=== PATIENT | female | born 2005 | race Caucasian/White ===

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

== ENCOUNTER 2024-01-17 15:05 | Outpatient (REF) | payer MEDICAID, SELFPAY ==
[2024-01-17 16:34] LABS: HCG Quantitative 15 mIU/mL
== END 2024-01-17 15:06 | disposition home or self-care (01) ==
LOC: HO.HHCL 15:05
PROVIDERS: Visit Provider Student in an Organized Health Care Education/Training Program
DX: N92.6 Irregular menstruation, unspecified (principal)
CPT/HCPCS: 36415; 84702

== ENCOUNTER 2024-01-24 08:47 | Outpatient (REF) | payer MEDICAID, SELFPAY ==
[2024-01-24 15:10] LABS: HCG Quantitative 300 mIU/mL
== END 2024-01-24 08:48 | disposition home or self-care (01) ==
LOC: HO.CHCLDS 08:47
PROVIDERS: Visit Provider Student in an Organized Health Care Education/Training Program
DX: N92.6 Irregular menstruation, unspecified (principal)
CPT/HCPCS: 36415; 84702

== ENCOUNTER 2024-05-11 13:02 | Outpatient (REF) | payer MEDICAID, SELFPAY | END 2024-05-11 13:03 | disposition home or self-care (01) | LOC: HO.HHCLNP 13:02 | PROVIDERS: Visit Provider Nurse Practitioner | DX: J02.9 Acute pharyngitis, unspecified (principal) | CPT/HCPCS: 87070 ==

== ENCOUNTER 2024-10-03 10:10 | Inpatient (IN) | payer MEDICAID, SELFPAY ==
[2024-10-03] VITALS (7 sets, daily range): BP systolic 137–158; BP diastolic 70–99; PULSE 66–80; RESP 16–24; TEMP 36.6–37.1; O2SAT 96–99; BMI 45.4
--- NOTE | 2024-10-03 | ECG_ITS ---
Test Reason : CHEST PAIN Blood Pressure : */* mmHG Vent. Rate : 76 BPM Atrial Rate : 76 BPM P-R Int : 122 ms QRS Dur : 66 ms QT Int : 378 ms P-R-T Axes : 3 30 29 degrees QTcB Int : 425 ms Normal sinus rhythm Normal ECG When compared with ECG of 06-Sep-2016 13:57, No significant changes seen Referred By: Martin Phoenix Electronically Signed By: CARI LYONS
--- NOTE | ~2024-10-03 | CT_ITS ---
CLINICAL HISTORY: SOB CT angiography chest with contrast. 3D Postprocessing. Comparison: None Findings: Motion artifact and contrast bolus timing limit interpretation. No large central or proximal segmental pulmonary embolism. No heart strain by CT. Patchy multifocal airspace density present, most pronounced within the right upper lobe. Moderate-sized bilateral effusions noted. No pneumothorax. The visualized upper abdomen is unremarkable. Borderline axillary adenopathy noted. Impression: Multifocal pneumonia suggested most pronounced within the right upper lobe. Evaluation is somewhat limited for pulmonary embolism. No large central PE or heart strain by CT. Moderate bilateral pleural effusions. This document has been electronically signed by: Rigoberto Pritchard MD on 10/03/2024 13:55:52
--- NOTE | ~2024-10-03 | XR_ITS ---
CLINICAL HISTORY: shortness of breath Chest radiograph, 1 view Comparison: CR/AK/SR - XR CHEST 2V - 09/28/21 22:41 EST Findings: The cardiomediastinal silhouette is not enlarged. Bilateral perihilar bronchovascular prominence. No focal consolidation or effusion. No pneumothorax. IMPRESSION: Bilateral perihilar bronchovascular prominence which can be seen with viral/atypical infection or reactive airway disease. No focal consolidation. This document has been electronically signed by: Jeremiah Martin DO on 10/03/2024 12:06:13
--- NOTE | ~2024-10-03 | XR_ITS ---
EXAMINATION: XR CHEST 1 VIEW HISTORY: F U Effusion, infiltrates COMPARISON: Comparison is made with the prior examination dated 10/03/2024. Correlation is also made with the chest CT dated 10/03/2024. FINDINGS: A single AP portable view of the chest performed at 9:56 AM is submitted. The lungs are expanded and clear. The pleural effusions noted on CT are not visualized on this single AP portable view. There is no pneumothorax or pulmonary vascular congestion. The heart is normal in size. The bones are intact. XR/XR chest 1V IMPRESSION: The pleural effusions described on chest CT are not visualized on this single AP view. PA and lateral views are recommended for follow-up of the pleural effusions. Electronically signed by: Cornel Spence MD 10/05/2024 10:19 AM [facility]ARA
[2024-10-03 11:26] LABS: MANUAL DIFF FLAG NO
[2024-10-03 11:30] LABS: Basophils Percent Auto 0.3 % (0-2); Eosinophils Absolute Auto 0.2 X10*3/uL (0.0-0.4); Eosinophils Percent Auto 2.6 % (0-4); Hematocrit 36.3 % (37.0-47.0); Hemoglobin 11.7 g/dl (12.0-16.0); Imm Gran Abs Auto 0.04 X10*3/uL (0.00-0.03); Imm Gran Pct Auto 0.4 % (0.0-0.4); Lymphocytes Absolute Auto 2.2 X10*3/uL (1.2-4.9); Lymphocytes Percent Auto 22.8 % (20-40); Mean Corpuscular HGB Conc 32.2 g/dl (31.0-35.0); Mean Corpuscular Hemoglobin 27.7 pg (27.0-33.0); Mean Corpuscular Volume 85.8 fL (80.0-98.0); Mean Platelet Volume 9.9 fL (9.4-12.3); Monocytes Absolute Auto 0.5 X10*3/uL (0.1-1.2); Monocytes Percent Auto 5.2 % (2-11); Neutrophils Absolute Auto 6.5 x10*3/uL (2.0-8.3); Neutrophils Percent Auto 68.7 % (45-73); Platelet Count 385 X10*3/uL (160-400); Red Blood Count 4.23 X10*6/uL (4.20-5.50); Red Cell Distribution Width 14.6 % (11.0-16.0); White Blood Count 9.4 X10*3/uL (4.8-10.8)
[2024-10-03 11:33] LABS: Influenza A PCR NEGATIVE (Negative); Influenza B PCR NEGATIVE (Negative); Resp Syncy Virus RNA Qual PCR NEGATIVE (Negative); SARS COV2 PCR INHOUSE NEGATIVE (Negative)
[2024-10-03 11:48] LABS: Prothrombin Time 11.4 SEC (10.9-12.4)
[2024-10-03] MEDS: Lidocaine HCl 1 % 20 ML VIAL SUBCUT (11:48)
[2024-10-03] MEDS: Labetalol HCL 200 MG TABLET PO (11:48)
[2024-10-03 11:49] LABS: D Dimer High Sensitivity 1061 NG/ML
[2024-10-03 12:01] LABS: Troponin-I High Sensitivity 5.3 ng/L (<3.5-17.0)
[2024-10-03 12:05] LABS: B Type Natriuretic Peptide 556 pg/mL (<100)
--- NOTE | 2024-10-03 12:05 | ED_ITS ---
HPI - SOB/Dyspnea General Chief Complaint: Dyspnea Stated Complaint: SOB x 2days ; 1 wk Time Seen by Provider: 10/03/24 11:31 Source: patient Mode of arrival: ambulatory History of Present Illness HPI Narrative: THIS IS A 19 YEARS OLD THE ABOUT 1 WEEK PRESENTED TO THE EMERGENCY DEPARTMENT COMPLAINING OF SHORTNESS OF BREATH FOR ABOUT 2 DAYS. MD elicited complaint: shortness of breath Onset (ago): day(s) (2) Context: recent illness Timing: constant Severity: moderate Exacerbating factors: nothing Relieving factors: nothing Associated symptoms: denies other symptoms Related Data Home Medications ?Medication ?Instructions ?Recorded ?Confirmed No Known Home Meds 10/03/24 10/03/24 Allergies Allergy/AdvReac Type Severity Reaction Status Date / Time No Known Allergies Allergy Verified 10/03/24 10:30 Review of Systems 2 Constitutional: Constitutional: Reports no additional constitutional complaints Cardiovascular: Cardiovascular: Reports no additional cardiovascular complaints and Reports dyspnea Respiratory: Respiratory: Reports dyspnea PMFSH Past Medical History PMFSH Narrative: 1 WEEK AGO Medical History Asthma Social History Social History Smoked in Last 30 Days: No Use of substances other than those prescribed or required for medical reasons: No Advance Directives: No Advance Directives Information Provided: No Do you have a plan to hurt others: No Plan Patient : No (post x1 week) Physical Exam 2 Vital Signs: Vital Signs: Last Vital Signs Temp 98.2 F 10/03/24 14:13 Pulse 66 10/03/24 14:13 Resp 20 10/03/24 14:13 BP 158/77 H 10/03/24 16:10 Pulse Ox 97 10/03/24 14:13 O2 Del Method Room Air 10/03/24 14:13 BMI result Body Mass Index 45.4 NO ACUTE DISTRESS MILDLY HYPERTENSIVE 152/93 THAT NO 149/95 Const: General: cooperative Nutritional Appearance: well nourished O rientation/consciousness: patient oriented x3 HEENT: Head: Yes normal to inspection General nose exam: Normal external nose present Face and sinus: Yes normal facial exam Mouth: Normal oral and palatal mucosa present Throat: Yes posterior oropharynx normal Neck: Neck: Yes normal visual inspection Chest: Chest palpation & inspection: normal inspection of the chest Resp: Effort & Inspection: normal respiratory effort Auscultation: clear to auscultation bilaterally Cardio: Jugular venous distension: no JVD Rate: regular rate Rhythm: r egular rhythm GI: Inspection: Yes normal to inspection Palpation (GI): Soft to palpation and not firm Skin: General skin exam: no rashes or lesions noted and elasticity normal L esions: no lesions Rashes: no rashes Neuro: General: patient oriented x3 Course Reevaluation(s) Reevaluation #1: DIFFICULT IV IV WAS ESTABLISHED BY ME UNDER ULTRASOUND A 20 GAUGE CATHETER LEFT ANTECUBITAL AREA, Bed side POC US done no pericardial effusion good EF Reevaluation #2: CTA of the chest was read by the Radiology as multifocal pneumonia, at this point we will do blood culture, lactic acid IV antibiotic. The patient does not require IV fluids blood pressure is actually elevated. I did a bedside echo no pericardial effusion. He has Time: 14:38 Reevaluation #3: [facility] spoke with OB service Dr Montgomery I was asked to call [facility]. I spoke with [facility] OB Dr Bloom , this is not preeclampsia because normal LFT normal Bun and creat .I was referred to the medical service [facility] spoke with [facility] hospitalist [place] [facility] accepting Dr Guardado however no bed available ,will take 2 Days to get bed ,the consensus was that it is reasonable to admit at [facility] treat the pneumonia and do formal Echo in Am.DR Bloom will be available for any questions. Spoke with hospitalist Marie Time: 15:59 Additional Reevaluation(s): 5 PM I am off shift now,I make Dr Ferreira aware of the case she is oxygenating well she is not tachypneic Medications Administered Discontinued Medications Generic Name Dose Route Start Last Admin Trade Name Freq PRN Reason Stop Dose Admin Ceftriaxone Sodium 1 gm 10/03/24 14:20 10/03/24 14:45 Ceftriaxone Sodium 1 Gm Vial IVPUSH 10/03/24 14:21 1 gm ONCE ONE Administration Furosemide 20 mg 10/03/24 15:53 10/03/24 16:10 Furosemide 20 Mg/2 Ml Vial IVPUSH 10/03/24 15:54 20 mg ONCE ONE Administration Protocol Doxycycline Hyclate 100 mg/ 250 mls @ 166.67 mls/hr 10/03/24 14:19 10/03/24 16:23 Sodium Chloride IV 10/03/24 15:48 Infused ONCE ONE Infusion Iohexol 65 ml 10/03/24 13:04 10/03/24 13:13 Iohexol 350 Mg/Ml 100 Ml Infus..Btl IV 10/03/24 13:05 65 ml ONCE ONE Administration Labetalol HCl 200 mg 10/03/24 11:31 10/03/24 11:48 Labetalol Hcl 200 Mg Tablet PO 10/03/24 11:32 200 mg ONCE ONE Administration Protocol Lidocaine HCl 20 ml 10/03/24 11:10 10/03/24 11:48 Lidocaine Hcl 1 % 20 Ml Vial SUBCUT 10/03/24 11:11 20 ml ONCE ONE Administration Medical Decision Making Medical Decision Making MDM Narrative: THIS IS A 19 YEARS OLD THE WITH SHORTNESS OF BREATH AND ELEVATED BLOOD PRESSURE WILL CHECK LABS EKG CHEST X-RAY Differential Diagnosis Differential Diagnoses: The differential diagnosis associated with the presentation includes CARDIOMYOPATHY/PULMONARY EMBOLI/ECLAMPSIA Admission/Observation Consideration of admission/observation: Escalation of care including admission/observation considered Consult Healthcare Provider Management of the patient was discussed with: Hospitalist and Ribbon Winder multiple phone call OB at [facility] Dr Chambers, OB at [facility] Dr Bloom,hospitalist at [facility] Mishel Lab Data MDM Lab Attestation statement: I reviewed the patient's lab results. 10/03/24 11:19 10/03/24 12:10 Labs: Lab Results 10/03/24 10/03/24 10/03/24 Range/Units 10:45 11:19 11:20 WBC 9.4 (4.8-10.8) X10*3/uL RBC 4.23 (4.20-5.50) X10*6/uL Hgb 11.7 L (12.0-16.0) g/dl Hct 36.3 L (37.0-47.0) % MCV 85.8 (80.0-98.0) fL MCH 27.7 (27.0-33.0) pg MCHC 32.2 (31.0-35.0) g/dl RDW 14.6 (11.0-16.0) % Plt Count 385 (160-400) X10*3/uL MPV 9.9 (9.4-12.3) fL Immature Gran % (Auto) 0.4 (0.0-0.4) % Neut % (Auto) 68.7 (45-73) % Lymph % (Auto) 22.8 (20-40) % [place] % (Auto) 5.2 (2-11) % Eos % (Auto) 2.6 (0-4) % Baso % (Auto) 0.3 (0-2) % Lymph # (Auto) 2.2 (1.2-4.9) X10*3/uL [place] # (Auto) 0.5 (0.1-1.2) X10*3/uL Eos # (Auto) 0.2 (0.0-0.4) X10*3/uL Baso # (Auto) 0.0 (0.0-0.2) X10*3/uL Abs Immat Gran (auto) 0.04 H (0.00-0.03) X10*3/uL Absolute Neuts (auto) 6.5 (2.0-8.3) x10*3/uL Absolute Nucleated RBC 0.000 (0.0-0.012) X10*3/uL Nucleated RBC % (auto) 0.0 (0.0-0.2) /100WBC Hold Purple Top SEE NOTE PT 11.4 (10.9-12.4) SEC INR 1.0 (0.9-1.1) D-Dimer High Sensitivty 1061 NG/ML Hold Blue Top SEE NOTE Sodium (135-145) mmol/L Potassium (3.3-5.1) mmol/L Chloride (96-108) mmol/L Carbon Dioxide (22-29) mmol/L Anion Gap (12-20) BUN (9-16) mg/dL Creatinine (0.5-1.4) mg/dL Estim Creat Clear Calc Estimated GFR Random Glucose (60-115) mg/dL Calcium (8.4-10.2) mg/dL Total Bilirubin (0.0-1.0) mg/dL Direct Bilirubin (0.0-0.5) mg/dL AST (5-31) U/L ALT (0-31) U/L Alkaline Phosphatase (39-117) U/L Troponin I High Sens 5.3 (<3.5-17.0) ng/L B-Natriuretic Peptide 556 H (<100) pg/mL Total Protein (6.5-8.0) g/dL Albumin (3.5-5.0) g/dL Influenza Type A (PCR) NEGATIVE (Negative) Influenza Type B (PCR) NEGATIVE (Negative) RSV RNA Qual (PCR) NEGATIVE (Negative) SARS-CoV-2 RNA (RT-PCR) NEGATIVE (Negative) 10/03/24 Range/Units 12:10 WBC (4.8-10.8) X10*3/uL RBC (4.20-5.50) X10*6/uL Hgb (12.0-16.0) g/dl Hct (37.0-47.0) % MCV (80.0-98.0) fL MCH (27.0-33.0) pg MCHC (31.0-35.0) g/dl RDW (11.0-16.0) % Plt Count (160-400) X10*3/uL MPV (9.4-12.3) fL Immature Gran % (Auto) (0.0-0.4) % Neut % (Auto) (45-73) % Lymph % (Auto) (20-40) % [place] % (Auto) (2-11) % Eos % (Auto) (0-4) % Baso % (Auto) (0-2) % Lymph # (Auto) (1.2-4.9) X10*3/uL [place] # (Auto) (0.1-1.2) X10*3/uL Eos # (Auto) (0.0-0.4) X10*3/uL Baso # (Auto) (0.0-0.2) X10*3/uL Abs Immat Gran (auto) (0.00-0.03) X10*3/uL Absolute Neuts (auto) (2.0-8.3) x10*3/uL Absolute Nucleated RBC (0.0-0.012) X10*3/uL Nucleated RBC % (auto) (0.0-0.2) /100WBC Hold Purple Top PT (10.9-12.4) SEC INR (0.9-1.1) D-Dimer High Sensitivty NG/ML Hold Blue Top Sodium 143 (135-145) mmol/L Potassium 4.5 (3.3-5.1) mmol/L Chloride 112 H (96-108) mmol/L Carbon Dioxide 22 (22-29) mmol/L Anion Gap 14 (12-20) BUN 11 (9-16) mg/dL Creatinine 0.79 (0.5-1.4) mg/dL Estim Creat Clear Calc 144.9 Estimated GFR > 60 Random Glucose 96 (60-115) mg/dL Calcium 8.8 D (8.4-10.2) mg/dL Total Bilirubin 0.4 (0.0-1.0) mg/dL Direct Bilirubin 0.2 (0.0-0.5) mg/dL AST 24 (5-31) U/L ALT 26 (0-31) U/L Alkaline Phosphatase 141 H (39-117) U/L Troponin I High Sens (<3.5-17.0) ng/L B-Natriuretic Peptide (<100) pg/mL Total Protein 6.4 L (6.5-8.0) g/dL Albumin 3.3 L (3.5-5.0) g/dL Influenza Type A (PCR) (Negative) Influenza Type B (PCR) (Negative) RSV RNA Qual (PCR) (Negative) SARS-CoV-2 RNA (RT-PCR) (Negative) Independent Interpretation I performed an independent interpretation of an: CT Scan Radiology Impression Discussion of test interpretation with radiology: I have reviewed the radiologist's reading. Radiologist Impression: No large central or proximal segmental pulmonary embolism. No heart strain by CT. Patchy multifocal airspace density present, most pronounced within the right upper lobe. Moderate-sized bilateral effusions noted. No pneumothorax. The visualized upper abdomen is unremarkable. Borderline axillary adenopathy noted. Impression: Multifocal pneumonia suggested most pronounced within the right upper lobe. Evaluation is somewhat limited for pulmonary embolism. No large central PE or heart strain by CT. Moderate bilateral pleural effusions. This document has been electronically signed by: Rigoberto Pritchard MD on 10/03/2024 13:55:52 Procedures EJ/Peripheral Line Arm L: Time Out Performed: Yes Skin Cleansed in Sterile Fashion: Yes Size (gauge): 20 IV Secured and Dressing Applied: Yes Patient Tolerated Procedure: well Additional Comments: Under US guided cannulated left Brachial vein with 20 Stef catheter good flush good blood return Critical Care Time Critical Care Time Critical Care Time: Yes Total Critical Care Time: 60 Attestation: taking care of the pt ,speaking to [facility] Dr Montgomery,speaking to [facility] OBBrandi Bloom,speaking to [facility] hospitalist Discharge Plan Discharge Clinical Impression: LESTER (dyspnea on exertion), Multifocal pneumonia, Bilateral pleural effusion Patient Disposition: Admitted As Inpatient Print Language: Arabic
[2024-10-03 12:38] LABS: Alanine Aminotransferase 26 U/L (0-31); Albumin Level 3.3 g/dL (3.5-5.0); Alkaline Phosphatase 141 U/L (39-117); Anion Gap 14 (12-20); Aspartate Amino Transferase 24 U/L (5-31); Bilirubin Direct 0.2 mg/dL (0.0-0.5); Bilirubin Total 0.4 mg/dL (0.0-1.0); Blood Urea Nitrogen 11 mg/dL (9-16); Calcium 8.8 mg/dL (8.4-10.2); Carbon Dioxide 22 mmol/L (22-29); Chloride 112 mmol/L (96-108); Creatinine Clr Calc Pharmacy 144.9; Estimated Glomerular Filt Rate > 60; Glucose Random 96 mg/dL (60-115); Potassium 4.5 mmol/L (3.3-5.1); Sodium 143 mmol/L (135-145); Total Protein 6.4 g/dL (6.5-8.0)
[2024-10-03] MEDS: iohexoL 350 MG/ML 100 ML INFUS..BTL 65 ML IV (13:13)
[2024-10-03] MEDS: cefTRIAXone sodium 1 GM VIAL IVPUSH (14:45)
[2024-10-03] MEDS: Doxycycline Hyclate 100 MG in 0.9 % Sodium Chloride 250 ML 166.67 MG IV (14:53)
--- NOTE | 2024-10-03 16:04 | P.HPHOSP_ITS ---
History of Present Illness Date of Service: 10/03/24 Chief Complaint: SOB 19-year-old woman 1 week presenting with complaints of shortness of breath over the last 2 days and lethargy. She reports an unremarkable vaginal . She has no other significant medical history and does not take any regularly prescribed medications at home. She denied any fever, chills, nausea, vomiting, diarrhea, recent travel. In the ER, her D-dimer was noted to be elevated at 1061 therefore chest CTA was obtained which was negative for pulmonary embolus, heart strain but did show multifocal pneumonia and moderate bilateral pleural effusions. BNP was elevated at 556, normal troponin, negative for flu, RSV and COVID. In the ER, patient received labetalol for elevated blood pressure, Rocephin, doxycycline and 1 dose of Lasix. Plan will be to admit patient for further management and treatment of multifocal pneumonia. Review of Systems 2 Review of Systems: Denies any recent fever chills or decrease in appetite respiratory see HPI cardiovascular denied chest pain gastrointestinal denies any dysphagia abdominal pain nausea vomiting or diarrhea genitourinary denies any dysuria frequency or hematuria musculoskeletal denies any joint pain or swelling neuropsych denies any weakness or seizures all other systems reviewed are negative [facility] Medical History Asthma Social History Smoked in Last 30 Days: No Use of substances other than those prescribed or required for medical reasons: No Advance Directives: No Advance Directives Information Provided: No Do you have a plan to hurt others: No Plan Patient : No (post x1 week) Meds Allergies Allergy/AdvReac Type Severity Reaction Status Date / Time No Known Allergies Allergy Verified 10/03/24 10:30 Home Medications ?Medication ?Instructions ?Recorded ?Confirmed ?Last Taken ?Type No Known Home Meds 10/03/24 10/03/24 Unknown History Physical Exam 2 Vital Signs and Narrative: Vital Signs: Last Vital Signs Temp 98.2 F 10/03/24 14:13 Pulse 66 10/03/24 14:13 Resp 20 10/03/24 14:13 BP 137/72 10/03/24 15:18 Pulse Ox 97 10/03/24 14:13 O2 Del Method Room Air 10/03/24 14:13 BMI result Body Mass Index 45.4 Appearing in no acute distress head is normocephalic atraumatic eyes pupils are PERRLA sclera is anicteric mouth throat mucous membranes are intact and moist neck is supple no lymphadenopathy, no JVD noted lung sounds are clear to auscultation heart regular rate rhythm, clear S1, S2 positive bowel sounds, abdomen is soft, nontender neuro patient is alert x3, no focal deficits Results Labs 10/04/24 08:16 10/04/24 08:16 Labs: Laboratory Results - last 24 hr 10/03/24 10/03/24 10/03/24 10:45 11:19 11:20 MCV 85.8 MCH 27.7 MCHC 32.2 RDW 14.6 Plt Count 385 MPV 9.9 Immature Gran % (Auto) 0.4 Neut % (Auto) 68.7 Lymph % (Auto) 22.8 [place] % (Auto) 5.2 Eos % (Auto) 2.6 Baso % (Auto) 0.3 Lymph # (Auto) 2.2 [place] # (Auto) 0.5 Eos # (Auto) 0.2 Baso # (Auto) 0.0 Abs Immat Gran (auto) 0.04 H Absolute Neuts (auto) 6.5 Absolute Nucleated RBC 0.000 Nucleated RBC % (auto) 0.0 Hold Purple Top SEE NOTE PT 11.4 INR 1.0 D-Dimer High Sensitivty 1061 Hold Blue Top SEE NOTE Anion Gap Estim Creat Clear Calc Estimated GFR Random Glucose Calcium Total Bilirubin Direct Bilirubin AST ALT Alkaline Phosphatase B-Natriuretic Peptide 556 H Total Protein Albumin Influenza Type A (PCR) NEGATIVE Influenza Type B (PCR) NEGATIVE RSV RNA Qual (PCR) NEGATIVE SARS-CoV-2 RNA (RT-PCR) NEGATIVE 10/03/24 12:10 MCV MCH MCHC RDW Plt Count MPV Immature Gran % (Auto) Neut % (Auto) Lymph % (Auto) [place] % (Auto) Eos % (Auto) Baso % (Auto) Lymph # (Auto) [place] # (Auto) Eos # (Auto) Baso # (Auto) Abs Immat Gran (auto) Absolute Neuts (auto) Absolute Nucleated RBC Nucleated RBC % (auto) Hold Purple Top PT INR D-Dimer High Sensitivty Hold Blue Top Anion Gap 14 Estim Creat Clear Calc 144.9 Estimated GFR > 60 Random Glucose 96 Calcium 8.8 D Total Bilirubin 0.4 Direct Bilirubin 0.2 AST 24 ALT 26 Alkaline Phosphatase 141 H B-Natriuretic Peptide Total Protein 6.4 L Albumin 3.3 L Influenza Type A (PCR) Influenza Type B (PCR) RSV RNA Qual (PCR) SARS-CoV-2 RNA (RT-PCR) Assessment and Plan (1) LESTER (dyspnea on exertion): Status: Acute (2) Multifocal pneumonia: Status: Acute (3) Bilateral pleural effusion: Status: Acute Plan 19 year old women admitted with Multifocal pneumonia and pleural effusion Multifocal pneumonia Rocephin and doxycycline Oxygen supplementation to keep oxygen saturation greater than 90% Antitussives as needed Pleural effusion with elevated BNP Obtain echocardiogram to rule out cardiomyopathy Cardiology consultation Lasix 20 mg IV daily 1 week Continues with bleeding Obesity. BMI 45.4 Newly DVT prophylaxis with pneumatic compression boots Full code Quality Stroke Does the patient have a stroke diagnosis?: No VTE Prior VTE?: No VTE Risk Level:: Medical - low VTE Device Contraindication: Treatment Not Indicated VTE Drug Contraindication: Treatment Not Indicated
[2024-10-03] MEDS: Furosemide 20 MG/2 ML VIAL IVPUSH (16:10)
--- NOTE | 2024-10-03 16:55 | PHA.MEDREC ---
Addendum entered by Denilson Murcia [facility] 10/03/24 17:45: MED REC CHECKED BY [facility] Original Note: Pharmacy Consult ? Medication Reconciliation Pharmacy has completed the medication reconciliation.
[2024-10-03 18:07] LABS: Appearance Urine Clear; Color Urine Yellow; Glucose Urine UA Negative (Negative); Leukocyte Esterase Urine Trace (Negative); Nitrite Urine Negative (Negative); PH 6.5 (5.0-9.0); UMIC TRIGGER UACC YES; Urine Blood Moderate (2+) (Negative); Urine Ketones Negative (Negative); Urine Protein Negative (Neg-Trace)
[2024-10-03] MEDS: Azithromycin 500 MG in 0.9 % Sodium Chloride 250 ML 125 MG IV (18:12)
[2024-10-03 18:14] LABS: Bacteria Urine None Seen (None Seen); Hyaline Casts Urine 0-2 /LPF (0-2); RBC Urine 0-2 /HPF (0-2); Squamous Epithelial Cell Urine 0-2 /HPF (0-2); WBC Urine 0-5 /HPF (0-5)
[2024-10-04 00:10] VITALS: BP 132/94; PULSE 77; RESP 22; TEMP 37.1; O2SAT 98
[2024-10-04 03:32] VITALS: BP 138/79; PULSE 78; RESP 20; TEMP 37; O2SAT 100
--- NOTE | 2024-10-04 05:04 | PC.NURSE ---
pt refused am labs, aware
[2024-10-04 08:27] LABS: Hematocrit 32.7 % (37.0-47.0); Hemoglobin 10.7 g/dl (12.0-16.0); Mean Corpuscular HGB Conc 32.7 g/dl (31.0-35.0); Mean Corpuscular Hemoglobin 27.8 pg (27.0-33.0); Mean Corpuscular Volume 84.9 fL (80.0-98.0); Mean Platelet Volume 9.7 fL (9.4-12.3); Platelet Count 376 X10*3/uL (160-400); Red Blood Count 3.85 X10*6/uL (4.20-5.50); Red Cell Distribution Width 14.9 % (11.0-16.0); White Blood Count 8.2 X10*3/uL (4.8-10.8)
[2024-10-04 08:41] LABS: Anion Gap 15 (12-20); Blood Urea Nitrogen 12 mg/dL (9-16); Calcium 8.3 mg/dL (8.4-10.2); Carbon Dioxide 21 mmol/L (22-29); Chloride 112 mmol/L (96-108); Creatinine Clr Calc Pharmacy 144.9; Estimated Glomerular Filt Rate > 60; Glucose Random 112 mg/dL (60-115); Potassium 4.1 mmol/L (3.3-5.1); Sodium 144 mmol/L (135-145)
[2024-10-04] MEDS: Furosemide 20 MG/2 ML VIAL IVPUSH (08:59)
[2024-10-04] MEDS: 0.9 % Sodium Chloride Flush 3 ML SYRINGE IVFLUSH ×2 (08:59→15:05)
--- NOTE | 2024-10-04 12:23 | HO.PM.IMPN ---
Subjective Subjective Date of Service: 10/04/24 Interval History: seen and evaluated this morning feels better not on O2 edema improving Review of Systems Review of Systems: Yes all other systems are reviewed and are negative Physical Exam Vital Signs: Vital Signs: Last Vital Signs Temp 98.6 F 10/04/24 03:32 Pulse 78 10/04/24 03:32 Resp 20 10/04/24 03:32 BP 138/79 10/04/24 03:32 Pulse Ox 100 10/04/24 03:32 O2 Del Method Room Air 10/04/24 03:32 BMI result Body Mass Index 45.4 Const: Other: Constitutional : Awake, interactive, not in distress Neck : Normal inspection, Supple Cardiovascular : RRR, no JVP, trace lower extremity edema Respiratory : fine basal bilateral crackles, decrease air entry on bases , no wheezes Gastrointestinal: soft, lax, Normal bowel sounds, Non tender Skin : Warm, Dry Neurological : Alert & oriented x3, No focal deficit Objective Data Active Medications Acetaminophen (Acetaminophen 325 Mg Tablet) 650 mg PO Q6H PRN PRN Reason: Pain, Mild 1-3,fever,headache Calcium Carbonate (Calcium Carbonate 750 Mg Tab.Chew) 750 mg PO Q4H PRN PRN Reason: Heartburn Ceftriaxone Sodium (Ceftriaxone Sodium 1 Gm Vial) 1 gm IVPUSH Q24H [facility] Furosemide (Furosemide 20 Mg/2 Ml Vial) 20 mg IVPUSH DAILY [facility]; Protocol Last Admin: 10/04/24 08:59 Dose: 20 mg Documented By: HOLDEN Guaifenesin/Dextromethorphan (Guaifenesin Dm 100/10/5 Ml 5 Ml Syrup) 5 ml PO Q6H PRN PRN Reason: Cough Azithromycin 500 mg/ Sodium (Chloride) 250 mls @ 125 mls/hr IV Q24H [facility] Last Infusion: 10/03/24 20:12 Dose: Infused Documented By: GALA Magnesium Hydroxide (Milk Of Magnesia 30 Ml Oral.Susp) 30 ml PO DAILY PRN PRN Reason: Constipation Melatonin (Melatonin 3 Mg Tablet) 6 mg PO BEDTIME PRN PRN Reason: Insomnia Sodium Chloride (0.9 % Sodium Chloride Flush 3 Ml Syringe) 3 ml IVFLUSH QSHIFT [facility] Last Admin: 10/04/24 08:59 Dose: 3 ml Documented By: HOLDEN Labs 10/04/24 08:16 10/04/24 08:16 Labs: Laboratory Results - last 24 hr 10/03/24 10/03/24 10/04/24 12:10 18:00 08:16 MCV 84.9 MCH 27.8 MCHC 32.7 RDW 14.9 Plt Count 376 MPV 9.7 Absolute Nucleated RBC 0.000 Nucleated RBC % (auto) 0.0 Anion Gap 14 15 Estim Creat Clear Calc 144.9 144.9 Estimated GFR > 60 > 60 Random Glucose 96 112 Calcium 8.8 D 8.3 L Total Bilirubin 0.4 Direct Bilirubin 0.2 AST 24 ALT 26 Alkaline Phosphatase 141 H Total Protein 6.4 L Albumin 3.3 L Urine Color Yellow Urine Appearance Clear Urine pH 6.5 Ur Specific [place] 1.010 Urine Protein Negative Urine Glucose (UA) Negative Urine Ketones Negative Urine Blood Moderate (2+) H Urine Nitrite Negative Ur Leukocyte Esterase Trace H Urine RBC 0-2 Urine WBC 0-5 Ur Squamous Epith Cells 0-2 Urine Bacteria None Seen Hyaline Casts 0-2 Assessment and Plan (1) Bilateral pleural effusion: Status: Acute (2) Multifocal pneumonia: Status: Acute (3) LESTER (dyspnea on exertion): Status: Acute Plan 19 year old women admitted with Multifocal pneumonia and pleural effusion Multifocal pneumonia Continue Rocephin and doxycycline wean O2 down Antitussives as needed Pleural effusion with elevated BNP Obtain echocardiogram to rule out cardiomyopathy Cardiology consultation Lasix 20 mg IV daily follow BNP 1 week repprting mild bleeding Obesity. BMI 45.4 Newly DVT prophylaxis with pneumatic compression boots Full code The patient needs overnight stay for treatmnet of pneumonia and gheart failure pending ECHO and improvement in effusions Quality Stroke Does the patient have a stroke diagnosis?: No VTE Prior VTE?: No VTE Risk Level:: Medical - low VTE Device Contraindication: Treatment Not Indicated VTE Drug Contraindication: Treatment Not Indicated
[2024-10-04 12:33] VITALS: BP 139/66; PULSE 84; RESP 18; TEMP 36.5; O2SAT 97
--- NOTE | 2024-10-04 12:58 | MHC.CM.PN ---
PT REPORTS SHE LIVES WITH HER S/O AND SON SHE IS INDEPENDENT WITH CARE, HAS NO DME AND NO SERVICES SHE DECLINES TO COMPLETE A HCP PCP AT [facility] PTS PREFERRED DCP HOME WITH NO SERVICES PT WILL ARRANGE TRANSPORT
[2024-10-04 14:00] VITALS: BP 138/81; PULSE 71; RESP 18; TEMP 36.9; O2SAT 96
[2024-10-04] MEDS: cefTRIAXone sodium 1 GM VIAL IVPUSH (15:05)
[2024-10-04 15:29] VITALS: BP 128/60; PULSE 71; RESP 17; TEMP 36.8; O2SAT 96
[2024-10-04] MEDS: Azithromycin 500 MG in 0.9 % Sodium Chloride 250 ML 125 MG IV (17:51)
[2024-10-04 18:54] LABS: B Type Natriuretic Peptide 257 pg/mL (<100)
[2024-10-04 20:00] VITALS: BP 134/81; PULSE 83; RESP 20; TEMP 36.6; O2SAT 97
[2024-10-05] VITALS: BP 125/73; PULSE 61; RESP 20; TEMP 36.8; O2SAT 96
[2024-10-05 04:00] VITALS: BP 133/77; PULSE 64; RESP 20; TEMP 36.4; O2SAT 98
[2024-10-05 06:52] LABS: MANUAL DIFF FLAG NO
--- NOTE | 2024-10-05 07:00 | CA_ITS ---
Transthoracic Echocardiogram Patient (Last, First, Middle): Yessi Burns, Gender: Female Date of : 2005 Age: 19 Procedure Date: 10/05/2024 Procedure Type: Transthoracic Echocardiogram Location: [facility] – [place] Height: 162.56 cm Weight: 119.75 kg BSA: 2.20 m2 Heart Rate: bpm BP: 133 / 77 mmHg Spice Cleaner: TEDDY Referring MD: Marie Rosales NP Symptoms: ? pulm edema Study Quality: Fair ECG Rhythm: Sinus Conclusions: - The left ventricular systolic function is mildly decreased. Visually estimated LVEF about 50%. - No obvious valvular pathology seen on this study. Findings Left Ventricle Normal left ventricular cavity size. There is normal left ventricular wall thickness. The left ventricular systolic function is mildly decreased. There is no evidence of regional wall motion abnormalities. Diastolic function is normal for age. Normal left ventricular filling pressures. Visually estimated LVEF about 50%. Right Ventricle Mildly increased right ventricular cavity size. There is normal right ventricular systolic function. Aortic Valve There is a normal trileaflet aortic valve. There is no aortic valve stenosis. There is no aortic valve regurgitation. Mitral Valve The mitral valve appears normal. There is no mitral valve regurgitation. There is no mitral valve stenosis. Pulmonic Valve There is trace to mild pulmonic valve regurgitation. Tricuspid Valve There is trace tricuspid valve regurgitation. There is no evidence of pulmonary hypertension. Great Vessels The asc aorta is normal in size. Venous The inferior vena cava is normal in size and collapses greater than 50% with inspiration. Pericardium/Pleural There is no evidence of pericardial effusion. Prior Study Comparison No prior study available for comparison. Recommendations, Care & Conclusions No obvious valvular pathology seen on this study. Measurements 2D Linear Measurements IVSd: 0.98 0.6-0.9/0.6-1.0 cm LVIDd: 4.99 3.9-5.3/4.2-5.9 cm LVIDd Index: 2.27 2.4-3.2/2.2-3.1 cm/m2 LVIDs: 3.48 2.0-3.6 cm LVPWd: 0.92 0.7-1.1 cm Ao Root: 2.60 2.1-3.5 cm LA Diam: 4.40 2.7-3.8/3.0-4.0 cm LAIDs Index: 2.00 1.5-2.3 cm/m2 LV Mass: 210.94 67-162/88-224 g LV Mass Index: 95.88 43-95/49-115 g/m2 LVOT Diam: 2.10 3.0+(-)1.3 cm 2D Systolic Function EF 4C: 51.70 >55% EF 2C: 40.00 >55% EF BiP: 45.00 >55% Mitral Valve MV Pk E: 0.68 MV PK A: 0.59 MV Decel Time: 157.00 E/A: 1.20 E'Lateral: 10.20 E'Medial: 7.07 E/E' Med: 9.60 E/E' Lat: 6.60 PHT: 46.00 MVA PHT: 4.78 Decel Wake: 4.32 Aortic Valve AoV Pk Naveed: 1.58 AoV Mn Naveed: 1.01 AoV VTI: 0.36 AoV Pk Grad: 10.00 Aov Mn Grad: 5.00 KIRSTY Cont.VTI: 1.66 LVOT LVOT Pk Naveed: 0.80 LVOT Mn Naveed: 0.57 LVOT VTI: 0.17 LVOT Pk Grad: 3.00 LVOT Mn Grad: 2.00 LVOT Diam: 2.10 LVOT Area: 3.46 Diastolic Function MV Pk E: 0.68 MV Pk A: 0.59 E/A: 1.20 E'Medial: 7.07 E/E' Med: 9.60 E' Laterial: 10.20 E/E' Lat: 6.60 Tricuspid Valve TR Pk Naveed: 1.96 TR Pk Grad: 15.00 RA Press: 3.00 RVSP: 18.00 Great Vessels Aorta Ao Root-2D: 2.60 2.0-3.7 cm Ao Asc: 2.70 2.1-3.4 cm Pulmonary Valve PV Pk Naveed: 1.17 Peak PV Grad: 5.00 Updated in Other Vendor System with Status of Final Duy Gregorio MD electronically signed on 10/05/2024 9:57:10 AM with status of Final
[2024-10-05 07:07] LABS: Basophils Absolute Auto 0.1 X10*3/uL (0.0-0.2); Basophils Percent Auto 0.7 % (0-2); Eosinophils Absolute Auto 0.2 X10*3/uL (0.0-0.4); Eosinophils Percent Auto 2.9 % (0-4); Hematocrit 37.7 % (37.0-47.0); Hemoglobin 11.8 g/dl (12.0-16.0); Imm Gran Abs Auto 0.03 X10*3/uL (0.00-0.03); Imm Gran Pct Auto 0.4 % (0.0-0.4); Lymphocytes Absolute Auto 2.8 X10*3/uL (1.2-4.9); Lymphocytes Percent Auto 37.4 % (20-40); Mean Corpuscular HGB Conc 31.3 g/dl (31.0-35.0); Mean Corpuscular Hemoglobin 27.2 pg (27.0-33.0); Mean Corpuscular Volume 86.9 fL (80.0-98.0); Mean Platelet Volume 10.1 fL (9.4-12.3); Monocytes Absolute Auto 0.5 X10*3/uL (0.1-1.2); Monocytes Percent Auto 6.7 % (2-11); Neutrophils Absolute Auto 3.8 x10*3/uL (2.0-8.3); Neutrophils Percent Auto 51.9 % (45-73); Platelet Count 431 X10*3/uL (160-400); Red Blood Count 4.34 X10*6/uL (4.20-5.50); Red Cell Distribution Width 14.8 % (11.0-16.0); White Blood Count 7.4 X10*3/uL (4.8-10.8)
[2024-10-05 07:20] LABS: Anion Gap 13 (12-20); Blood Urea Nitrogen 11 mg/dL (9-16); Calcium 8.6 mg/dL (8.4-10.2); Carbon Dioxide 23 mmol/L (22-29); Chloride 110 mmol/L (96-108); Creatinine Clr Calc Pharmacy 156.9; Estimated Glomerular Filt Rate > 60; Glucose Random 93 mg/dL (60-115); Potassium 4.1 mmol/L (3.3-5.1); Sodium 142 mmol/L (135-145)
[2024-10-05 07:24] VITALS: BP 123/60; PULSE 67; RESP 18; TEMP 36.6; O2SAT 98
[2024-10-05] MEDS: Furosemide 20 MG/2 ML VIAL IVPUSH (09:08)
[2024-10-05] MEDS: 0.9 % Sodium Chloride Flush 3 ML SYRINGE IVFLUSH (09:08)
[2024-10-05] MEDS: Acetaminophen 325 MG TABLET 650 MG PO (09:14)
--- NOTE | 2024-10-05 10:01 | P.CONCA_ITS ---
History of Present Illness History of Present Illness Date of Service: 10/05/24 Chief complaint: Multifocal pna Narrative: This is a cardiology consultation regarding congestive heart failure. Patient gave but about a week ago. Apparently he was doing okay initially but then started having shortness of breath at rest as well as exertion and that led to the hospitalization. She was treated to have both pneumonia as well as congestive heart failure. She has received diuretics. Today, she states she feels good. Previously, no known cardiac issues. No history of congestive heart failure or cardiomyopathy. Healthy with no major comorbidities according to her. The itself was also fine and did not have any issues like preeclampsia. This is the 1st /delivery. Otherwise, she does not have any cough, expectoration, fever, chills, joint pains extra. Review of Systems 2 Review of Systems: Yes all other systems are reviewed and are negative Constitutional: Constitutional: Reports as per HPI and Reports no additional constitutional complaints Eyes: Eyes: Reports as per HPI and Denies no additional eye complaints ENT: Denies system reviewed and no additional complaints, except as documented and Reports as per HPI Cardiovascular: Cardiovascular: Reports as per HPI, Reports no additional cardiovascular complaints, Denies acrocyanosis, Denies cool extremities, Denies chest pain, Denies leg edema, Denies lightheadedness, Denies palpitations and Denies dyspnea Respiratory: Respiratory: Reports as per HPI, Denies no additional respiratory complaints and Denies dyspnea Gastrointestinal: Gastrointestinal: Reports as per HPI and Denies no additional gastrointestinal complaints Genitourinary: Genitourinary: Reports as per HPI Musculoskeletal: Musculoskeletal: Reports no additional musculoskeletal complaints and Reports as per HPI Integumentary/Breasts: Skin/Breast: Reports system reviewed and no additional complaints, except as docu Neurologic: Reports system reviewed and no additional complaints, except as documented and Reports as per HPI Psychiatric: Psychiatric: Reports no additional psychiatric complaints and Reports as per HPI Endocrine: Endocrine: Reports no additional endocrine complaints, Reports as per HPI and Denies palpitations Hematologic/Lymphatic: Hematologic/Lymphatic: Reports no additional hematologic/lymphatic complaints and Reports as per HPI Allergic/Immunologic: Allergic/Immunologic: Reports no additional allergic/immunologic complaints and Reports as per HPI [facility] Past Medical History Medical History Asthma Family History Family History Father No problems noted. Mother No problems noted. Social History Social History Household Members: Significant Other and Family Housing: Apartment Do you presently have visiting nurse or other home services: No Patient Tobacco Use Status: Never used Tobacco Smoked in Last 30 Days: No e-Cigarette/Vaping Use: Never Used Patient Interested in Nicotine Replacement: No Patient Given Instructions on How to Stop Smoking: No Second Hand Smoke Exposure: No Use of substances other than those prescribed or required for medical reasons: No Currently Displaying Signs/Symptoms of Drug Intoxication Withdrawal: No Any prior treatment program specific to substance use: No Have you been hit, kicked, punched, or otherwise hurt by someone within the past year? If so, by whom?: No Do you feel safe in your current relationship?: Yes Is there a partner from a previous relationship who is making you feel unsafe now?: No Spiritual Healthcare Practices: na Advance Directives: No Advance Directives Information Provided: No Do you have a plan to hurt others: No Plan Recently lost weight without trying: No Eating poorly because of decreased appetite: No Nutrition Risks: No Nutritional Risk Patient : No : Yes Poor oral hygiene: No service: No Meds Allergies Allergy/AdvReac Type Severity Reaction Status Date / Time No Known Allergies Allergy Verified 10/03/24 10:30 Active Medications: Current Medications Acetaminophen (Acetaminophen 325 Mg Tablet) 650 mg PO Q6H PRN PRN Reason: Pain, Mild 1-3,fever,headache Last Admin: 10/05/24 09:14 Dose: 650 mg Calcium Carbonate (Calcium Carbonate 750 Mg Tab.Chew) 750 mg PO Q4H PRN PRN Reason: Heartburn Ceftriaxone Sodium (Ceftriaxone Sodium 1 Gm Vial) 1 gm IVPUSH Q24H MYRNA Last Admin: 10/04/24 15:05 Dose: 1 gm Furosemide (Furosemide 20 Mg/2 Ml Vial) 20 mg IVPUSH DAILY MYRNA; Protocol Last Admin: 10/05/24 09:08 Dose: 20 mg Guaifenesin/Dextromethorphan (Guaifenesin Dm 100/10/5 Ml 5 Ml Syrup) 5 ml PO Q6H PRN PRN Reason: Cough Azithromycin 500 mg/ Sodium (Chloride) 250 mls @ 125 mls/hr IV Q24H [facility] Last Infusion: 10/04/24 19:51 Dose: Infused Magnesium Hydroxide (Milk Of Magnesia 30 Ml Oral.Susp) 30 ml PO DAILY PRN PRN Reason: Constipation Melatonin (Melatonin 3 Mg Tablet) 6 mg PO BEDTIME PRN PRN Reason: Insomnia Sodium Chloride (0.9 % Sodium Chloride Flush 3 Ml Syringe) 3 ml IVFLUSH QSHIFT [facility] Last Admin: 10/05/24 09:08 Dose: 3 ml Home Medications ?Medication ?Instructions ?Recorded ?Confirmed ?Last Taken ?Type No Known Home Meds 10/03/24 10/03/24 Unknown History Physical Exam 2 Vital Signs: Vital Signs: Last Vital Signs Temp 97.8 F 10/05/24 07:24 Pulse 67 10/05/24 07:24 Resp 18 10/05/24 07:24 BP 123/60 10/05/24 07:24 Pulse Ox 98 10/05/24 07:24 O2 Del Method Room Air 10/05/24 07:24 BMI result Body Mass Index 45.4 Const: General: comfortable and no acute distress O rientation/consciousness: patient oriented x3 HEENT: Other: Unremarkable Head: Yes normal to inspection Neck: Neck: Yes normal visual inspection Chest: Chest palpation & inspection: normal inspection of the chest Resp: Auscultation: clear to auscultation bilaterally Cardio: Palpation: normal PMI Heart sounds: S1 normal heart sound present, S2 normal heart sound present, no gallops, no murmurs and no rubs GI: Palpation (GI): Soft to palpation Back/Spine/Pelvis: Other: unremarkable Skin: General skin exam: no rashes or lesions noted Neuro: General: patient oriented x3 Extrem: General: Yes normal to inspection Psych: Mental Status: mental status grossly normal Objective Labs and Meds 10/05/24 06:01 10/05/24 06:01 Lab results: Laboratory Results - last 24 hr 10/04/24 10/05/24 18:23 06:01 WBC 7.4 RBC 4.34 Hgb 11.8 L Hct 37.7 MCV 86.9 MCH 27.2 MCHC 31.3 RDW 14.8 Plt Count 431 H MPV 10.1 Immature Gran % (Auto) 0.4 Neut % (Auto) 51.9 Lymph % (Auto) 37.4 [place] % (Auto) 6.7 Eos % (Auto) 2.9 Baso % (Auto) 0.7 Lymph # (Auto) 2.8 [place] # (Auto) 0.5 Eos # (Auto) 0.2 Baso # (Auto) 0.1 Abs Immat Gran (auto) 0.03 Absolute Neuts (auto) 3.8 Absolute Nucleated RBC 0.000 Nucleated RBC % (auto) 0.0 Sodium 142 Potassium 4.1 Chloride 110 H Carbon Dioxide 23 Anion Gap 13 BUN 11 Creatinine 0.73 Estim Creat Clear Calc 156.9 Estimated GFR > 60 Random Glucose 93 Calcium 8.6 B-Natriuretic Peptide 257 H ECG Interpretation: EKG shows underlying sinus rhythm at 76/Min; no significant ST-T changes and otherwise unremarkable. Normal KS and corrected QT. Assessment and Plan (1) Acute CHF: Status: Acute (2) Multifocal pneumonia: Status: Acute (3) Bilateral pleural effusion: Status: Acute Plan In the labs, cardiac BNP was elevated at 556 followed by 257. High sensitivity troponin is within range. In the chest CTA, report of multifocal pneumonia, most pronounced in the right upper lobe. Moderate bilateral effusion. In the echocardiogram LVEF is about 50%. Borderline low but nothing profound. Filling pressures seem normal. No significant valve issues. IVC is also of normal size/collapsibility. In a prior echocardiogram from 2019, systolic function stated to be qualitatively normal with normal strain. Overall, CHF on arrival but seems to be much improved now. Cardiac function does not appear to be depressed enough to cause heart failure but not entirely clear. Also as she has already received diuretics, unclear if that may changes to her filling pressures/IVC. Any case, she seems to be clinically improved. Can ambulate and see how she does. If doing well, consider discharge planning. We will repeat an echocardiogram in about 4 weeks' time in follow-up. Discussed with Dr. Sharma. Procedures Date of Service Date of Service: 10/05/24
[2024-10-05 10:53] VITALS: BP 119/82; PULSE 68; RESP 24; TEMP 36.3; O2SAT 98
--- NOTE | 2024-10-05 13:53 | P.DS_ITS ---
DS: Providers Provider Date of Service: 10/05/24 Date of admission: 10/03/24 17:21 Date of discharge: 10/05/24 Primary care physician: Unknown Physician Consults: 10/03/24 17:38 Consult to Cardiology Routine Consulting Provider: [facility] [place] [facility] Reason for consultation: ? cardiomyopathy DS: Diagnosis Discharge Diagnosis (1) Acute CHF: Status: Acute (2) Multifocal pneumonia: Status: Acute (3) Bilateral pleural effusion: Status: Acute DS: Summary Hospital Course Hospital Course: Admission note HPI 19-year-old woman 1 week presenting with complaints of shortness of breath over the last 2 days and lethargy. She reports an unremarkable vaginal . She has no other significant medical history and does not take any regularly prescribed medications at home. She denied any fever, chills, nausea, vomiting, diarrhea, recent travel. In the ER, her D-dimer was noted to be elevated at 1061 therefore chest CTA was obtained which was negative for pulmonary embolus, heart strain but did show multifocal pneumonia and moderate bilateral pleural effusions. BNP was elevated at 556, normal troponin, negative for flu, RSV and COVID. In the ER, patient received labetalol for elevated blood pressure, Rocephin, doxycycline and 1 dose of Lasix. Plan will be to admit patient for further management and treatment of multifocal pneumonia. Hospital course The patient was treated for Multifocal pneumonia with IV Rocephin and doxycycline. weaned O2 down. blood cultures remained negative. Discharged on Ceftin and Azithromycin PO. Antitussives as needed For the Pleural effusion with elevated BNP we obtained an echocardiogram showing mildly decreased EF of 50%. Cardiology consulted and recommended no intervention at this stage. to follow up with cardiology as outpatient next week. received 3 doses of Lasix 20 mg IV with fair response. Elevated BNP trended down. repeated CXR did not show effusion. D-Dimer elevated likely in state. CTA negative for PE. no lower extremities swelling, erythema or tenderness to suggest DVT. Discharge plan Ceftin and Azithromycin PO Follow up with cardiology as outpatient. Time Attestation Discharge Coordination Time (in mins): 38 Quality: Safe Use of Opioids Does Pt have an Active Cancer Diagnosis on the Problem List?: No Quality: Stroke Does the patient have a stroke diagnosis?: No Physical Exam Vital Signs: Vital Signs: Last Vital Signs Temp 97.4 F 10/05/24 10:53 Pulse 68 10/05/24 10:53 Resp 24 H 10/05/24 10:53 BP 119/82 10/05/24 10:53 Pulse Ox 98 10/05/24 10:53 O2 Del Method Room Air 10/05/24 10:53 BMI result Body Mass Index 45.4 Const: Other: Constitutional : Awake, interactive, not in distress Neck : Normal inspection, Supple Cardiovascular : RRR, no JVP, trace lower extremity edema Respiratory : fine basal bilateral crackles, decrease air entry on bases , no wheezes Gastrointestinal: soft, lax, Normal bowel sounds, Non tender Skin : Warm, Dry Neurological : Alert & oriented x3, No focal deficit DS: Data Data Completed and Pending Labs on day of discharge: Laboratory Results - last 24 hr 10/04/24 10/05/24 18:23 06:01 WBC 7.4 RBC 4.34 Hgb 11.8 L Hct 37.7 MCV 86.9 MCH 27.2 MCHC 31.3 RDW 14.8 Plt Count 431 H MPV 10.1 Immature Gran % (Auto) 0.4 Neut % (Auto) 51.9 Lymph % (Auto) 37.4 [place] % (Auto) 6.7 Eos % (Auto) 2.9 Baso % (Auto) 0.7 Lymph # (Auto) 2.8 [place] # (Auto) 0.5 Eos # (Auto) 0.2 Baso # (Auto) 0.1 Abs Immat Gran (auto) 0.03 Absolute Neuts (auto) 3.8 Absolute Nucleated RBC 0.000 Nucleated RBC % (auto) 0.0 Sodium 142 Potassium 4.1 Chloride 110 H Carbon Dioxide 23 Anion Gap 13 BUN 11 Creatinine 0.73 Estim Creat Clear Calc 156.9 Estimated GFR > 60 Random Glucose 93 Calcium 8.6 B-Natriuretic Peptide 257 H Preliminary micro results at discharge 10/03/24 14:44 Blood Culture - Preliminary Blood - Venous No growth after 24 hours. 10/03/24 14:44 Blood Culture - Preliminary Blood - Venous No growth after 24 hours. Imaging Chest x-ray: Radiologist's impression: ITS Impressions Chest X-Ray 10/05/24 10:00 IMPRESSION: The pleural effusions described on chest CT are not visualized on this single AP view. PA and lateral views are recommended for follow-up of the pleural effusions. Electronically signed by: Cornel Spence MD 10/05/2024 10:19 AM EST Discharge Plan Discharge Anticipated Discharge Date/Time: 10/05/24 13:43 Patient Disposition: Home, Self-Care Discharge Diagnosis: Multifocal pneumonia Heart failure Referrals: Physician,Unknown J [Primary Care Provider] - 1 Week Discharge Medications: New azithromycin 500 mg tablet 500 mg PO DAILY 7 Days Qty: 7 0RF cefuroxime axetil 500 mg tablet 500 mg PO BID Qty: 14 0RF Discharge Orders: Discharge Order (Routine); Ordered 10/05/24 Ordered By: Juan Ramon Sharma Diet: Low salt diet Activity on Discharge: As tolerated Stand Alone Forms: Patient Portal Discharge page Print Language: [place] Care Plan Goals: Low sodium diet Continue antibiotics for 1 more week To follow with dr Gregorio from [facility] [place] cardi[place] in 1 month to repeat Echo come back to ED for any worsening shortness of breath, swelling in legs or fever. Health Concerns: Pneumonia Heart failure Plan of Treatment: Antibiotics Follow up with Cardiology Assessment: as above Discharge Date/Time: 10/05/24 14:20
--- NOTE | 2024-10-05 14:08 | MHC.CM.PN ---
Pt is medically cleared for discharge home self-care, she has arranged her own transport home today.
== END 2024-10-05 14:20 | disposition home or self-care (01) | DRG 561 ==
LOC: HO.ED 15:59 → HO.EDOVER 17:46 → HO.IMC 10-04 10:41
PROVIDERS: Admitting Provider Nurse Practitioner Acute Care; Emergency Provider Emergency Medicine; Visit Provider Student in an Organized Health Care Education/Training Program
DX: O99.53 Diseases of the respiratory system complicating the puerperium (principal); J18.9 Pneumonia, unspecified organism; I50.9 Heart failure, unspecified; Z20.822 Contact with and (suspected) exposure to COVID-19; O90.89 Other complications of the puerperium, not elsewhere classified; O99.215 Obesity complicating the puerperium; E66.9 Obesity, unspecified; Z71.3 Dietary counseling and surveillance
CPT/HCPCS: 0241U; 36415; 71045; 71275; 80048; 80076; 81001; 83880; 84484; 85025; 85027; 85379; 85610; 87040; 93005; 93306; 99285; J0456; J0696; J1940; J2003; Q9957; Q9967

== ENCOUNTER → 2024-10-03 10:49 | Outpatient (BNV) | payer MEDICAID, SELFPAY | PROVIDERS: Emergency Provider Emergency Medicine; Visit Provider Radiology Diagnostic Radiology | DX: J98.09 Other diseases of bronchus, not elsewhere classified (principal); J18.9 Pneumonia, unspecified organism; J90 Pleural effusion, not elsewhere classified | CPT/HCPCS: 71045; 71275 ==

== ENCOUNTER → 2024-10-03 12:16 | Outpatient (BNV) | payer MEDICAID, SELFPAY | PROVIDERS: Admitting Provider Nurse Practitioner Acute Care; Emergency Provider Emergency Medicine; Visit Provider Internal Medicine | DX: R07.9 Chest pain, unspecified (principal) | CPT/HCPCS: 93010 ==

== ENCOUNTER 2024-10-03 17:21 | Outpatient (BNV) | payer MEDICAID, SELFPAY | END 2024-10-05 10:00 | PROVIDERS: Admitting Provider Nurse Practitioner Acute Care; Emergency Provider Emergency Medicine; Visit Provider Radiology Diagnostic Radiology | DX: I31.39 Other pericardial effusion (noninflammatory) (principal) | CPT/HCPCS: 71045 ==

== ENCOUNTER 2024-10-03 17:21 | Outpatient (BNV) | payer MEDICAID, SELFPAY | END 2024-10-05 07:00 | PROVIDERS: Admitting Provider Nurse Practitioner Acute Care; Emergency Provider Emergency Medicine; Visit Provider Internal Medicine | DX: I37.1 Nonrheumatic pulmonary valve insufficiency (principal) | CPT/HCPCS: 93306 ==

== ENCOUNTER → 2024-10-03 17:21 | Outpatient (BNV) | payer MEDICAID, SELFPAY | PROVIDERS: Admitting Provider Nurse Practitioner Acute Care; Emergency Provider Emergency Medicine; Visit Provider Internal Medicine | DX: I50.9 Heart failure, unspecified (principal); J18.9 Pneumonia, unspecified organism; J90 Pleural effusion, not elsewhere classified | CPT/HCPCS: 99223 ==

== ENCOUNTER → 2024-10-03 17:21 | Outpatient (BNV) | payer MEDICAID, SELFPAY | PROVIDERS: Admitting Provider Nurse Practitioner Acute Care; Emergency Provider Emergency Medicine; Visit Provider Nurse Practitioner Acute Care | DX: I50.9 Heart failure, unspecified (principal); J18.9 Pneumonia, unspecified organism; J90 Pleural effusion, not elsewhere classified | CPT/HCPCS: 99239 ==

== ENCOUNTER 2024-11-10 13:29 | Outpatient (AMB) | payer MEDICAID, SELFPAY ==
--- NOTE | 2024-11-10 13:31 | MHC.OFFVIS ---
Vital Signs 11/10/24 13:33 Height 5 ft 4 in Weight 245 lb 2.464 oz BMI 42.1 BP 110/64 Blood Pressure Location Lt brachial Position Sitting Pulse 71 Pulse Source Pulse Oximeter Intake Visit Reasons: F/U s/p Echo Intake Note: f/up echo Dye Maker Required: No Accompanied by: Self / Same As Patient Allergies No Known Allergies Allergy (Verified 10/03/24 10:30) HPI Comments Details: This is a 19-year-old female patient presenting for a hospital discharge follow-up. Patient has no known history of ischemic disease or coronary artery disease. Recently, patient was hospitalized for multifocal pneumonia and was treated with antibiotics, IV Lasix, and IV labetalol. During her hospital stay, her BNP was elevated and an echocardiogram revealed a mildly reduced EF. Her D-dimer was also elevated but her CTA ruled out pulmonary embolism. She has also state, although she had no leg edema, erythema suggesting DVT. Today, the patient reports feeling well overall and has completed her course of antibiotics. She denies any cardiac symptoms including exertional chest pain, shortness of breath, palpitations, dizziness, fatigue, orthopnea, PND, leg edema, presyncope, or syncope. [facility] Medical History Asthma Family History Father No problems noted. Mother No problems noted. Social History Household Members: Significant Other and Family Housing: Apartment Do you presently have visiting nurse or other home services: No Patient Tobacco Use Status: Never used Tobacco e-Cigarette/Vaping Use: Never Used Second Hand Smoke Exposure: No service: No Review of Systems Const Denies chills, Denies fatigue, Denies fever(s), Denies frequent falls, Denies weakness, Denies weight gain and Denies weight loss ENT Denies dizziness Card Denies chest pain, Denies leg edema, Denies lightheadedness, Denies palpitations, Denies dyspnea and Denies dyspnea on exertion Resp Denies cough, Denies dyspnea and Denies dyspnea on exertion GI Denies hematochezia Musc Denies abnormal gait, Denies muscle weakness, Denies numbness, Denies radiating pain into limb and Denies tingling Neuro Denies abnormal gait, Denies dizziness, Denies frequent falls, Denies numbness, Denies tingling and Denies weakness Endo Denies fatigue and Denies palpitations Physical Exam Vital Signs: Last Vital Signs Pulse 71 11/10/24 13:33 BP 110/64 11/10/24 13:33 BMI result Body Mass Index 42.1 Const General: cooperative, healthy appearing, comfortable and no acute distress Orientation/consciousness: patient oriented x3 HEENT Head: Yes normal to inspection Neck Neck: Yes normal visual inspection, Yes trachea midline and Yes supple Chest Chest palpation & inspection: normal inspection of the chest Resp Effort & Inspection: normal respiratory effort Auscultation: clear to auscultation bilaterally, no crackles, no rales, no rhonchi and no wheezes Cardio Jugular venous distension: no JVD Palpation: normal PMI Rate: regular rate Rhythm: regular rhythm Heart sounds: S1 normal heart sound present, S2 normal heart sound present, no click, no gallops, no murmurs and no rubs Peripheral pulses: Peripheral pulses 2+ throughout GI Inspection: Yes normal to inspection Palpation (GI): Soft to palpation Auscultation: normal bowel sounds Skin General skin exam: no rashes or lesions noted Neuro General: patient oriented x3 Extrem General: Yes normal to inspection, No no pedal edema and No calf tenderness Psych Appearance: grossly normal Mental Status: mental status grossly normal Speech and movement: Normal speech and movement present Assessment & Plan Assessment & Plan (1) Cardiomyopathy: Code(s): I42.9 - Cardiomyopathy, unspecified Category: Medical (2) Hospital discharge follow-up: Code(s): Z09 - Encounter for follow-up examination after completed treatment for conditions other than malignant neoplasm Category: Medical Plan 10/05/2024-echo study during hospitalization showed a mildly decreased LV systolic function with an EF about 50% with no valvular or wall motion abnormalities. Clinically euvolemic today with a blood pressure within normal range. Patient is not reporting any symptoms at this time and is also not on any medications. Patient denies using any stimulants, tobacco, or drugs. We will repeat the echo to assess for any improvement in heart function following the resolution for pneumonia. While she did present with some signs of CHF to the hospital, it remains unclear whether this is totally due to cardiac etiology or not. Discussed in detail the signs and symptoms of heart failure for her to monitor. Further treatment based on the findings of the repeat echo. Advised heart healthy diet, engaging in regular exercise, and focusing on weight loss. We will follow-up with the patient as needed. In the interim, patient will call the office with any concerns or change in symptoms. This note was generated using voice recognition software. While every effort has been made to ensure accuracy and proper facilities management executive, there may be occasional errors that could affect the content or meaning of the described symptoms. Orders: Orders CA Echo Limited Today I42.9 - Cardiomyopathy, unspecified Medications: Discontinued cefuroxime axetil Discontinued Reason: Patient no longer taking 500 mg PO BID 14 tabs 0RF azithromycin Discontinued Reason: Patient no longer taking 500 mg PO DAILY 7 tabs 0RF 7 days Coding Level of Care Code Est Pt Level 4 (44992) Complex EM visit Add On G2211 Diagnoses Cardiomyopathy I42.9 Hospital discharge follow-up Z09 Time Spent (min) 31 Comment Time spent in reviewing the chart, test results, assessment, counseling and documentation.
[2024-11-10 13:33] VITALS: BP 110/64; PULSE 71; BMI 42.1
--- OUTSIDE RECORDS SUMMARY | 2024-11-10 15:55 | XMS_ITS | Encounter Summary ---
Author Organization [employer] Address [address] [place] [address] [address] [place] [address] Care Team Providers Care Traveling Passenger Agent Name Role Phone Anne Berry DO Primary Care Provider [phone] Lynette Schneider [employer] SALES MANAGER Primary Care Provider [phone] Lidia Mendiola NP Primary Care Provider [phone] Reason for Visit * Reason Onset Date Comments Appointment Request 04/05/2023 Encounter Details Date Type Department Care Team (Late st Contact Info) Description 04/05/2023 Telephone [facility] [address], [place] [id number] Anne Berry DO [address] [place], [place] [id number] Appointment Request Social History Tobacco Use Types Packs/Day Years Used Date Smoking Tobacco: Never Smokeless Tobacco: Never Alcohol Use Standard Drinks/Week Comments Never 0 (1 standard drink = 0.6 oz pur e alcohol) Comments No Sex and Gender Information Value Date Recorded Sex Assigned at Female 06/11/2022 10:18 AM EDT Legal Sex Female 10:18 AM EDT Gender Identity Female 06/11/2022 10:18 AM EDT Sexual Orientation Straight 06/11/2022 10 :18 AM EDT documented as of this encounter Miscellaneous Notes * Telephone Encounter - Terra Diaz - 04/05/2023 1:52 PM EDT Tc from pt requesting a PE appointment for school. Building Mechanic did not see any availability. Please contact mom at [phone] documented in this encounter Plan of Treatment Not on file documented as of this encounter Visit Diagnoses Not on filedocumented in this encounter Care Teams Traveling Passenger Agent Relationship Specialty Start Date End Date Anne Berry DO [address] [place] [address] PCP - General Pediatrics 08/12/18 04/15/23 Lynette Schneider FNP [address] [place] [address] PCP - General Family Medicine 04/16/23 09/09/23 Lidia Mendiola NP [address] [place] [address] PCP - General Family Medicine 09/10/23 documented as of this encounter
--- OUTSIDE RECORDS SUMMARY | 2024-11-10 15:55 | XMS_ITS | Clinical Summary ---
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 09/26/2024 11:33 AM [facility] Opiate Screen, Ur Negative Negative LAB CHEMISTRY METHOD 09/26/2024 11:33 AM [facility] Cannabinoid (THC) Screen, Ur Negative Negative LAB CHEMISTRY METHOD 09/26/2024 11:33 AM [facility] Comment:Specimens from patie nts taking pantoprazole sodium (Protonix) have been shown to produce false positive results. Oxycodone Screen, Ur Negative Negative LAB CHEMISTRY METHOD 09/26/2024 11:33 AM [facility] Fentanyl, Ur Negative Negative LAB CHEMISTRY METHOD 09/26/2024 11:33 AM [facility] Urine Urine specimen obtained by clean catch procedure / Unknown Non-blood Collection / Unknown 09/26/2024 8:08 AM EST 09/26/2024 10:41 AM EST [facility] - 09/26/2024 11:33 AM EST Assay cutoffs: Amphetamines ? 1000 ng/mL Barbiturates ?200 ng/mL Benzodiazepines ?? 200 ng/mL Cocaine ? 300 ng/mL Fentanyl ?1 ng/mL Opiates ? 300 ng/mL Oxycodone ? 100 ng/mL THC ?50 ng/mL Semi-quantitative assay for screening purposes only. Unconfirmed screening result should not be used for non-medical purposes. *ALTERNATE METHOD CONFIRMATION DONE UPON REQUEST ONLY* us [facility] URINE ORDERABLES Final Re sult [facility] ([facility]) [facility] [address] [place] [address], * TH AN NERVE BLK LUMBAR EPIDURAL (NO CHARGE) (09/26/2024 4:15 AM EST) Anna Koenig MD - 09/26/2024 4:15 AM EST Anna Ponce MD ? 09/26/2024 ??4:52 AM Epidural Block Patient location during procedure: OB Start time: 09/26/2024 4:15 AM End time: 09/26/2024 4:47 AM Reason for block: labor epidural Staffing Performed: anesthesiologist Anesthesiologist: Anna Ponce MD Performed by: Anna Ponce MD Authorized by: Anna Ponce MD ?? Preanesthetic Checklist Completed: patient identified, IV checked, risks and benefits discussed, surgical consent, monitors and equipment checked, pre-op evaluation and timeout performed Epidural Patient Position: sitting Monitoring: heart rate, continuous pulse ox and NIBP Approach: midline Vertebral Space: lumbar Lumbar Location: L1-2 and L3-4 Needle Needle type: Tuohy Needle gauge: 18 G Needle length: 8.5 cm Needle insertion depth: 8 cm Catheter size: 19 G (20 G) Catheter at skin depth: 15 cm Test dose: negative and lidocaine 1.5% with epinephrine 1-to-200,000 Medications Administered lidocaine PF (XYLOCAINE) local injection 1% - infiltration, Back 2 mL - 09/26/2024 4:22:00 AM lidocaine 1.5%-EPINEPHrine PF 1:200,000 injection - epidural, Back 3 mL - 09/26/2024 4:37:00 AM Assessment Sensory level: T10 Events: negative aspiration for heme, incremental injection every 5 mL and transient paresthesias Additional Notes Skin wheal placed with Lidocaine 1% (Plain) infiltration. Attempts x 2 Ist attempt +ve CSF @L3-L4 2 ATTEMPT L1-L2 Excellent Yumiko to Saline NO Heme; NO CSF; NO Paresthesias from either needle or catheter. Negative aspiration on catheter prior to any dosing. Patient with improved comfort with contractions bilaterally at the conclusion of this encounter. Well-tolerated. ??Placed in IRISH position subsequent to procedure completion. *See anesthesia record/MAR for full documentation of other medications administered as part of this encounter* Medications Administered lidocaine PF (XYLOCAINE) local injection 1% - infiltration, Back 2 mL - 09/26/2024 4:22:00 AM lidocaine 1.5%-EPINEPHrine PF 1:200,000 injection - epidural, Back 3 mL - 09/26/2024 4:37:00 AM Anna Ponce MD ANESTHESIA ORDERABLES Final Resu lt * SST tube (09/25/2024 2:58 PM EST) Pathologist [facility] Extra Tube Hold for add-ons. 09/25/2024 5:02 PM EST [facility] Comment:Auto resulted. Blood Venous blood specimen / Unknown 09/25/2024 2:58 PM EST 09/25/2024 3:04 PM EST Berenice Robison MD LAB BLOOD ORDERABLES Fin al Result [facility] [address] [place] [address], [place] [phone] * (ABNORMAL) Complete blood count (09/25/2024 2:58 PM EST) Pathologist [facility] WBC 11.2(H) 4.8 - 10.8 K/mcL LAB HEMETOLOGY METHOD 09/25/2024 3:12 PM EST [facility] RBC 4.00 3.80 - 4.80 M/mcL LAB HEMETOLOGY METHOD 09/25/2024 3:12 PM EST [facility] Hemoglobin 11.2(L) 11.5 - 16.0 g/dL LAB HEMETOLOGY METHOD 09/25/2024 3:12 PM EST [facility] Hematocrit 35.1 35.0 - 47.0 % LAB HEMETOLOGY METHOD 09/25/2024 3:12 PM [facility] MCV 86.9 79.0 - 98.0 FL LAB HEMETOLOGY METHOD 09/25/2024 3:12 PM [facility] MCH 27.7 27.0 - 32.0 pcg LAB HEMETOLOGY METHOD 09/25/2024 3:12 PM [facility] MCHC 31.9(L) 32.0 - 37.0 g/dL LAB HEMETOLOGY METHOD 09/25/2024 3:12 PM [facility] RDW 14.7 11.0 - 15.0 % LAB HEMETOLOGY METHOD 09/25/2024 3:12 PM [facility] Platelets 363 130 - 400 K/mcL LAB HEMETOLOGY METHOD 09/25/2024 3:12 PM [facility] MPV 10.7 7.0 - 11.0 FL LAB HEMETOLOGY METHOD 09/25/2024 3:12 PM [facility] NRBC 0.0 <1.0 % LAB HEMETOLOGY METHOD 09/25/2024 3:12 PM [facility] NRBC Absolute 0.00 <0.10 K/mcL LAB HEMETOLOGY METHOD 09/25/2024 3:12 PM [facility] Blood Venous blood specimen / Unknown Venipuncture / Unknown 09/25/2024 2:58 PM EST 09/25/2024 3:04 PM EST us Cholo Azar MD LAB BLOOD ORDERABLES Final R esult [facility] [address] [place] [address], * Type and screen (09/25/2024 2:58 PM EST) ABO Group A 09/25/2024 4:10 PM EST [facility] Rh Type Positive 09/25/2024 4:10 PM EST [facility] Antibody Screen Negative 09/25/2024 4:10 PM EST [facility] Blood Venous blood specimen / Unknown Venipuncture / Unknown 09/25/2024 2:58 PM EST 09/25/2024 3:04 PM EST us Cholo Azar MD LAB BLOOD BANK TEST ORDERABL ES Final Result Performing Organization Address [facility]/ZIP Co de Phone Number [facility] [address] [place] [address], [place] [phone] * (ABNORMAL) [employer]/ROM Plus (09/25/2024 12:29 PM EST) Only the most recent of2 resultswithin the time period is included. Placental Alpha-1 Microglobulin Positive( A) Negative 09/25/2024 12:58 PM EST [facility] Vaginal Fluid Vaginal structure / Unknown Non-blood Collection / Unknown 09/25/2024 12:29 PM EST 09/25/2024 12:35 PM EST us Cholo Azar MD LAB BODY FLUIDS AND STOOLS O RDERABLES Final Result [facility] [address] [place] [address], [place] [phone] * Chlamydia trachomatis and Neisseria gonorrhoeae molecular study (09/07/2024 12:00 AM EST) Pathologist [facility] Neisseria gonorrhoeae PCR Negative Negative LAB MOLECULAR DIAGNOSTICS METHOD 09/08/2024 8:50 AM EST [facility] Chlamydia trachomatis PCR Negative Negative LAB MOLECULAR DIAGNOSTICS METHOD 09/08/2024 8:50 AM EST [facility] Swab Cervix uteri structure / Unknown 09/07/2024 09/07/2024 6:28 PM EST Cholo Costa MD LAB MICROBIOLOGY - GENERAL ORD ERABLES Final Result Performing Organization Address City/[facility]/ZIP Co de Phone Number [facility] [address] [place] [address], * (ABNORMAL) Strep B molecular study (09/05/2024 8:00 PM EST) [facility] Grp B Strep PCR Detected (A) Not Detected LAB MICROBIOLOGY METHOD 09/07/2024 8:15 AM EST [facility] Swab Vaginal swab / Unknown Non-blood Collection / Unknown 09/05/2024 8:00 PM EST 09/05/2024 8:07 PM EST Narrative [facility] - 09/07/2024 8:15 AM EST Group B Streptococcus Susceptibility testing is not routinely performed since this organism is predictably sensitive to Penicillin. Susceptibility testing should be performed for Penicillin Allergic women at HIGH RISK for Anaphylaxis. Should this patient ??require testing, Please contact the Microbiology Department at [phone] within 7 days of receiving this report to request susceptibility. Magali Lopez CNM LAB BLOOD ORDERABLES Final Resu lt Performing Organization Address City/[facility]/ZIP Co de Phone Number [facility] [address] [place] [address], [place] [phone] * Hepatitis C antibody (07/02/2024 2:40 PM EST) [facility] Hepatitis C Antibody Negative Negative LAB CHEMISTRY METHOD 07/02/2024 6:18 PM EST [facility] Blood Venous blood specimen / Unknown Venipuncture / Unknown 07/02/2024 2:40 PM EST 07/02/2024 4:33 PM EST Cholo Costa MD LAB BLOOD ORDERABLES Final Res ult Performing Organization Address [facility]/ZIP Co de Phone Number [facility] [address] [place] [address], [place] [phone] * HIV 1,2 antibody, p24 antigen with reflex to differentiation (07/02/2024 2:40 PM EST) HIV Combo AB/AG Negative Negative LAB CHEMISTRY METHOD 07/02/2024 6:18 PM EST [facility] Blood Venous blood specimen / Unknown Venipuncture / Unknown 07/02/2024 2:40 PM EST 07/02/2024 4:33 PM EST Narrative [facility] - 07/02/2024 6:18 PM EST This assay is a 4th generation assay allowing for earlier detection of HIV infection by detecting the presence of the HIV-1 p24 antigen as well as the traditional antibodies to HIV type 1 (including group O) and type 2. ??Use of a 4th generation assay is the current CDC recommendation for HIV screening. Cholo Costa MD LAB BLOOD ORDERABLES Final Res ult Performing Organization Address [facility] Co de Phone Number [facility] [address] [place] [address], [place] [phone] from Last 3 Months or Most Recently Relevant to Health Maintenance Insurance [address] [place] [address] [id number] MEDICAID [place] Advance Directives * Full Code - Default (Latest Code Status on File) Date Activated Date Inactivated Comments 09/26/2024 6:08 PM 09/28/2024 12:53 PM This is ord er is used when code status has not been discussed with the patient, or code status is otherwise unknown/unconfirmed To update the patient's code status, place a code status order. Do not modify or discontinue any currently active code status orders. * Full Code - Default Date Activated Date Inactivated Comments 09/25/2024 11:54 AM 09/26/2024 5:41 PM This is ord er is used when code status has not been discussed with the patient, or code status is otherwise unknown/unconfirmed To update the patient's code status, place a code status order. Do not modify or discontinue any currently active code status orders. * Full Code - Confirmed Date Activated Date Inactivated Comments 09/05/2024 7:55 PM 09/05/2024 10:32 PM This code s tatus was ascertained in the following way: Code status discussion: discussion with patient To update the patient's code status, place a code status order. Do not modify or discontinue any currently active code status orders. * Full Code - Default Date Activated Date Inactivated Comments 08/27/2024 5:03 PM 08/27/2024 9:25 PM This is orde r is used when code status has not been discussed with the patient, or code status is otherwise unknown/unconfirmed To update the patient's code status, place a code status order. Do not modify or discontinue any currently active code status orders. * Full Code - Default Date Activated Date Inactivated Comments 08/27/2024 5:03 PM 08/27/2024 5:03 PM This is orde r is used when code status has not been discussed with the patient, or code status is otherwise unknown/unconfirmed To update the patient's code status, place a code status order. Do not modify or discontinue any currently active code status orders. Care Teams Rotary Swaging Machine Operator Relationship Specialty Start Date End Date Jadyn Fabian MD [address] [place] [phone] PCP - General Family Medicine 07/22/24
--- OUTSIDE RECORDS SUMMARY | 2024-11-10 15:55 | XMS_ITS | Encounter Summary ---
Author Organization [facility] Address [address] [place] [address] Care Team Providers Care Event Organizer Name Role Phone RuiJadyn amanda MD Primary Care Provider [phone] Encounter Details Date Type Department Care Team (Latest Contact Info) Description 09/07/2024 Lab Requisition [facility] [address] [facility] [place] [phone] Cholo Costa MD [address] [facility] [address] [place] [phone] Encounter for screening for infections with a predominantly sexual mode of transmission Social History Tobacco Use Types Packs/Day Years Used Date Smoking Tobacco: Never Smokeless Tobacco: Never Alcohol Use Standard Drinks/Week Comments Not Currently 0 (1 standard drink = 0.6 oz pur e alcohol) Interpersonal Safety Answer Date Record ed Physical Abuse 09/05/2024 Verbal Abuse 09/05/2024 Comments Yes Sex and Gender Information Value Date Recorded Sex Assigned at Female 08/27/2024 3:38 PM EST Legal Sex Female 2:29 PM EST Gender Identity Female 08/27/2024 3:38 PM EST Sexual Orientation Straight 08/27/2024 3: 38 PM EST documented as of this encounter Plan of Treatment Not on file documented as of this encounter Procedures Procedure Name Priority Date/Time Associated Diagnosis Comments CHLAMYDIA TRACHOMATIS AND NEISSERIA GONORRHOEAE PCR Routine 09/07/2024 12:00 AM EST Encounter for screening for infections with a predominantly sexual mode of transmission documented in this encounter Results * Chlamydia trachomatis and Neisseria gonorrhoeae molecular study (09/07/2024 12:00 AM EST) Neisseria gonorrhoeae PCR Negative Negative LAB MOLECULAR DIAGNOSTICS METHOD 09/08/2024 8:50 AM EST [facility] Chlamydia trachomatis PCR Negative Negative LAB MOLECULAR DIAGNOSTICS METHOD 09/08/2024 8:50 AM EST [facility] Swab Cervix uteri structure / Unknown 09/07/2024 09/07/2024 6:28 PM EST us Cholo Costa MD LAB MICROBIOLOGY - GENERAL ORD ERABLES Final Result [facility] [address] [place] [address], documented in this encounter Visit Diagnoses Diagnosis Encounter for screening for infections with a predominantly sexual mode of transmission documented in this encounter Care Teams Event Organizer Relationship Specialty Start Date End Date Jadyn Fabian MD [address] [place] [phone] PCP - General Family Medicine 07/22/24 documented as of this encounter
--- OUTSIDE RECORDS SUMMARY | 2024-11-10 15:55 | XMS_ITS | Encounter Summary ---
Author Organization [employer] [facility] Address [address] [facility] 7[address] [place] [address] Care Team Providers Care Wood Room Hand Name Role Phone Lidia Mendiola NP Primary Care Provider [phone] Reason for Visit * Reason Onset Date Comments Results 01/24/2024 Encounter Details Date Type Department Care Team ([facility] Contact Info) Description 01/24/2024 Telephone [facility] [address] [place], [place] [phone] Lidia Mendiola NP [address] [place] [address] Results Social History Tobacco Use Types Packs/Day Years Used Date Smoking Tobacco: Never Smokeless Tobacco: Never Alcohol Use Standard Drinks/Week Comments Never 0 (1 standard drink = 0.6 oz pur e alcohol) Depression Answer Date Recorded Patient Health Questionnaire-9 Score 0 10/07/2023 Patient Health Questionnaire-9 Score 0 10/07/2023 Last PHQ-9: Questionnaire Data Not on file 0 10/07/2023 Housing Stability Answer Date Recorded What is your housing situation today? I have luis m yoon 05/27/[address] you li ve. Do you have problems with any of the following? None of the above 05/27/2023 Food Insecurity Answer Date Recorded Within the past 12 months, y ou worried that your food would run out before you got money to buy more: Never True 05/27/2023 Within the past 12 months,th e food you bought just didn't last and you didn't have enough money to get more: Never True Transportation Answer Date Recorded In the past 12 months, has l ack of transportation kept you from medical appts, meetings, work or from getting things needed for daily living? No 05/27/2023 Utilities Answer Date Recorded In the past 12 months, has t he electric, gas, oil or water company threatened to shut off services in your home? No 05/27/2023 Depression Answer Date Recorded Patient Health Questionnaire-2 Score 0 10/07/2023 Comments No Sex and Gender Information Value Date Recorded Sex Assigned at Female 06/11/2022 10:18 AM EDT Legal Sex Female 10:18 AM EDT Gender Identity Female 06/11/2022 10:18 AM EDT Sexual Orientation Straight 06/11/2022 10 :18 AM EDT documented as of this encounter Miscellaneous Notes * Telephone Encounter - Wing Kate RN - 01/27/2024 2:30 PM EDT Addressed pt via tc about results in another note. * Telephone Encounter - Terra Diaz - 01/27/2024 9:35 AM EDT Tc from pt calling in regards to message above. * Telephone Encounter - Dianna Ochoa - 01/24/2024 3:16 PM EDT Tc from pt requesting a call back with labs results from today. documented in this encounter Plan of Treatment Not on file documented as of this encounter Visit Diagnoses Not on filedocumented in this encounter Additional Health Concerns Assessment Noted Time PHQ-9 Depression Total Score: 0 10/07/19 9:10 AM EST documented as of this encounter Care Teams Wood Room Hand Relationship Specialty Start Date End Date Lidia Mendiola NP [address] [place] [id number] PCP - General Family Medicine 09/10/23 documented as of this encounter
--- OUTSIDE RECORDS SUMMARY | 2024-11-10 15:55 | XMS_ITS | Encounter Summary ---
Author Organization [employer] Address [address] [place] [address] 7[address] [place] [address] Care Team Providers Care Cable Mock Up Assembler Name Role Phone Lidia Mendiola NP Primary Care Provider [phone] Reason for Visit * Reason Onset Date Comments Hospital Follow-up 10/02/2024 Encounter Details Date Type Department Care Team ([facility] st Contact Info) Description 10/02/2024 Telephone [facility] MEDICINE [address] [place], [place] [phone] Lidia Mendiola NP [address] [place] [address] Hospital Follow-up Social History Tobacco Use Types Packs/Day Years [...] Recorded Patient Health Questionnaire-2 Score 0 10/07/2023 Internet Access Answer Date Recorded Internet Access Q1 Yes 09/01/2024 Internet Access Q2 Not on file 09/01/2024 Comments No Sex and Gender Information Value Date Recorded Sex Assigned at Female 06/11/2022 10:18 AM EDT Legal Sex Female 10:18 AM EDT Gender Identity Female 06/11/2022 10:18 AM EDT Sexual Orientation Straight 06/11/2022 10 :18 AM EDT documented as of this encounter Miscellaneous Notes * Telephone Encounter - Luis Yip - 10/02/2024 12:18 PM EST Tc from pt requesting a HDF appt. Hospital: [facility] Date of admission: 09/25/24 Discharge date: 09/28/24 Diagnosed: Gave *Send message to [facility] Contact pt at [phone] documented in this encounter Plan of Treatment Not on file documented as of this encounter Visit Diagnoses Not on filedocumented in this encounter Additional Health Concerns Assessment Noted Time PHQ-9 Depression Total Score: 0 10/07/19 9:10 AM EST documented as of this encounter Care Teams Cable Mock Up Assembler Relationship Specialty Start Date End Date Lidia Mendiola NP [address] [place] [id number] PCP - General Family Medicine 09/10/23 documented as of this encounter
--- OUTSIDE RECORDS SUMMARY | 2024-11-10 15:55 | XMS_ITS | Encounter Summary ---
Author Organization [facility] Address [address] [place] [address] 7[address] [place] [address] Care Team Providers Care Administrative Services Director Name Role Phone Anne Berry DO Primary Care Provider [phone] Lynette Schneider Primary Care Provider [phone] Lidia Mendiola NP Primary Care Provider [phone] Encounter Details Date Type Department Care Team (Late st Contact Info) Description 09/17/2022 Orders Only [facility] [address] [place] [address] Anne Berry DO [address] [place] [address] Social History Tobacco Use Types Packs/Day Years Used Date Smoking Tobacco: Never Assessed Comments Unknown Sex and Gender Information Value Date Recorded Sex Assigned at Female 06/11/2022 10:18 AM EDT Legal Sex Female 10:18 AM EDT Gender Identity Female 06/11/2022 10:18 AM EDT Sexual Orientation Straight 06/11/2022 10 :18 AM EDT documented as of this encounter Plan of Treatment Not on file documented as of this encounter Visit Diagnoses Not on filedocumented in this encounter Care Teams Administrative Services Director Relationship Specialty Start Date End Date Anne Berry DO [address] [place] [address] PCP - General Pediatrics 08/12/18 04/15/23 Lynette Schneider FNP [address] [place] [address] PCP - General Family Medicine 04/16/23 09/09/23 Lidia Mendiola NP [address] [place] [address] PCP - General Family Medicine 09/10/23 documented as of this encounter
--- OUTSIDE RECORDS SUMMARY | 2024-11-10 15:55 | XMS_ITS | Encounter Summary ---
Author Organization [employer] [facility] Address [address] [place] [address] [address]t [place] [address] Care Team Providers Care Adolescent Coordinator Name Role Phone Anne Berry DO Primary Care Provider [phone] Lynette Schneider Primary Care Provider [phone] Lidia Mendiola NP Primary Care Provider [phone] Encounter Details Date Type Department Care Team (Late st Contact Info) Description 07/16/2022 Telephone [facility] MEDICINE [address] [place], [place] [phone] Anne Berry DO [address] [place] [address] Social History Tobacco Use Types Packs/Day Years [...] on filedocumented in this encounter Care Teams Adolescent Coordinator Relationship Specialty Start Date End Date Anne Berry DO [address] [place] [address] PCP - General Pediatrics 08/12/18 04/15/23 Lynette Schneider FNP [address] [place] [address] PCP - General Family Medicine 04/16/23 09/09/23 Lidia Mendiola NP [address] [place] [address] PCP - General Family Medicine 09/10/23 documented as of this encounter
--- OUTSIDE RECORDS SUMMARY | 2024-11-10 15:55 | XMS_ITS | Clinical Summary ---
Author Organization [employer] Address [address] [facility] 7[address] [place] [address] Care Team Providers Care Optics Engineer Name Role Phone Lidia Mendiola NP Primary Care Provider [phone] Allergies No known active allergies Medications calcium carbonate EX (Tums Smoothies) 750 MG chewable tablet Chew 1 tablet in the morning. 1 Active hydrocortisone 2.5 % ointment Apply 2.5 application topically if needed for itching. 1 Active melatonin 5 MG tablet Take 1 tablet by mouth at bedtime. 1 Active triamcinolone (Kenalog) 0.1 % creamIndications: Rash Apply a small amount to affected area on arm BID as directed 15 g 2 3 Active Additional Information Patient not taking.Reported on 03/12/2024 acetaminophen (Tylenol) 500 MG tablet Take 2 tablets (1,000 mg) by mouth every 6 (six) hours if needed for moderate pain or fever for up to 25 doses. 30 tablet 3 Active Additional Information Patient not taking.Reported on 03/12/2024 ibuprofen 400 MG tablet 1 tab every 8 h with food x 7 days 21 tablet 4 Active Additional Information Patient not taking.Reported on 03/12/2024 medroxyPROGESTERo ne (Depo-Provera) 150 MG/ML injectionIndicati ons:Encounter for surveillance of injectable contraceptive Inject 1 mL (150 mg) into the shoulder, thigh, or buttocks every 3 (three) months. 1 mL 3 4 Active Additional Information Patient not taking.Reported on 03/12/2024 multivitamin () 27-0.8 MG tablet Take 1 tablet by mouth Once per day. 30 tablet 11 Active Active Problems Problem Noted Date Diagnosed Date Dental caries 03/12/2024 Supragingival dental plaque 03/12/2024 Healthcare maintenance 10/07/2023 Assessment & Plan (10/07/2023 4:02 PM EST): 18 year old utd on routine screening, anticipatory guidance reviewed, pt self set goals are to lose weight Vision changes 10/07/2023 BMI 37.0-37.9, adult 10/07/2023 Assessment & Plan (10/07/2023 4:02 PM EST): Pt reports weight change secondary to depoprovera, is motivated to exercise, healthy habits reviewed, contemplative about depo moving forward but declines alternative today Dizziness and giddiness 07/25/2022 COVID-19 07/02/2022 Obesity in adolescent 07/02/2022 Encounters Date Type Department Care Team Description 10/23/2024 Population Health Risk Score [facility] () Department [address] [id number] Provider, Population Health Generic 10/06/2024 Patient Outreach [facility] [address] [place] [address] Lidia Mendiola NP Care Coordination ([facility]/JARVIS De La Garza- Attempt to R/S missed IA-Pt declined to participate) 10/02/2024 Telephone [facility] [address] [place] [address] Lidia Mendiola NP Hospital Follow-up 09/30/2024 Patient Outreach [facility] [address] [place] [address] Lidia Mendiola NP Care Coordination ([facility] De La Garza- Follow up call-LVM) 09/29/2024 Patient Outreach [facility] [address] [place] [address] Lidia Mendiola NP Transition Of Care (Tcm) (HDF unscheduled ) 09/22/2024 Telephone [facility] [address] [place] [address] Claudette Dominguez Care Management ([facility] initial assessment-lvm) 09/21/2024 Patient Outreach [facility] [address] [place] [address] Lidia Mendiola, CONTRACT SHELTERED WORKSHOP SUPERVISOR Care Coordination ([facility]- Maternity Appt Reminder) 09/01/2024 Patient Outreach [facility] [address] [place] [address] Lidia Mendiola, CONTRACT SHELTERED WORKSHOP SUPERVISOR Care Coordination ([facility]- ADT Outreach-Agrees to participate) 08/28/2024 Patient Outreach [facility] [address] [place] [address] Lidia Mendiola, CONTRACT SHELTERED WORKSHOP SUPERVISOR Care Coordination ([facility]- Facility Outreach) 08/28/2024 Telephone [facility] [address] [place] [phone] Claudette Dominguez Care Management ([facility] chart review) from Last 3 Months Immunizations Name Administration Dates Next Due DTaP, 5 pertussis antigens 11/25/2008,,01/25/2005,12/07,2004 HPV 9-Valent 02/20/2019,09/17/2016 Hep A, ped/adol, 2 dose 09/17/2016,06/22/2015 Hep B, Adolescent or Pediatric 2,06/11/2022,01/25/2005,12/07,2004,2004 Hib (PRP-T) 12/05/2005, 5,2004,09/28 IPV 11/25/2008, 5,2004,09/28 Influenza injectable quadriv alent preservative free 06/14/2021,05/29/2018,09/17/2016,08/17 Influenza live intranasal qu adrivalent LIAV4 06/21/2015 Influenza, Split (incl. herson fied surface antigen) 07/01/2013 MMR 11/25/2008,08/24/2005 Meningococcal MCV4P ACYW-135 07/31/2022,09/17/19 17 Meningococcal Polysaccharide A,C,Y,W-135 TT Conjugate 07/31/2022 Pfizer Covid-19 Vaccine 12+ 12/06/2021, 1,06/14/2021 Pfizer Covid-19 Vaccine 12+ jaimie-sucrose (George Cap) 12/06/2021 Pneumococcal Conjugate PCV 13 12/05/2005 ,01/25/2005,2004,09/28 Tdap 09/17/2016 Varicella 11/25/2008,08/24/2005 Social History Tobacco Use Types Packs/Day Years Used Date Smoking Tobacco: Never Smokeless Tobacco: Never Tobacco Cessation:Counseling Given: Not Answered Alcohol Use Standard Drinks/Week Comments Never 0 (1 standard drink = 0.6 oz pur e alcohol) Depression Answer Date Recorded Patient Health Questionnaire-9 Score 0 10/07/2023 Patient Health Questionnaire-9 Score 0 10/07/2023 Last PHQ-9: Questionnaire Data Not on file 0 10/07/2023 Housing Stability Answer Date Recorded What is your housing situation today? I have luis mkelin yoon 05/27/[address] you [...] Orientation Straight 06/11/2022 10 :18 AM EDT Last Filed Vital Signs Vital Sign Reading Time Taken Comments Blood Pressure 128/69 05/11/2024 6:19 PM EDT Pulse 85 05/11/2024 6:19 PM EDT Temperature 36.3 ??C (97.3 ??F) 05/11/2024 6:19 PM ED T Respiratory Rate 14 05/11/2024 6:19 PM EDT Oxygen Saturation 96% 05/11/2024 6:19 PM EDT Inhaled Oxygen Concentration - - Weight 108 kg (238 lb) 05/11/2024 6:19 PM EDT Height 162.6 cm (5' 4 ) 05/11/2024 6:19 PM EDT Body Mass Index 40.85 05/11/2024 6:19 PM EDT Plan of Treatment Health Maintenance Due Date Last Done Comments Dental X-Ray: Full Mouth 2004 Alcohol/Substance Use Screening 2016 Family Planning (PISQ) 2019 Dental X-Ray: Bitewings 05/16/2023 05/15/2022 COVID-19 Vaccine ( season) 2024 12/06/2021, 12/06/2021, 07/05/2021, Additional history exists Influenza Vaccine (#1) 2024 , 05/29/2018, 09/17/2016, Additional history exists Dental Oral Exam 09/13/2024 03/12/2024, 05/15/2022 Dental Prophylaxis 09/13/2024 03/12/2024, 05/15/2022 Depression Screening 10/07/2024 10/07/2023, 10/07/19 24 Chlamydia and Gonorrhea Screening 12/30/2024 12/31/2023, 05/24/2023, 03/05/2023, Additional history exists Tobacco Screening 03/12/2025 03/12/2024 SDOH Screening 09/01/2025 09/01/2024 DTaP/Tdap/Td Vaccines (7 - Td or Tdap) 09/17/2026 09/17/2016, 11/25/2008, 12/05/2005, Additional history exists Lipid Panel 10/07/2028 10/07/2023 Zoster Vaccines (1 of 2) 2054 RSV Patients and Patients Aged 60 years or older (1 - 1-dose 75+ series) 2079 HIB Vaccines Completed 12/05/2005, 01/10, 2004, Additional history exists Pneumococcal Vaccine: Pediatrics (0 to 5 Years) and At-Risk Patients (6 to 49) Years) Completed 12/05/2005, 01/25/2005, 2004, Additional history exists IPV Vaccines Completed 11/25/2008, 01/10, 2004, Additional history exists Hepatitis A Vaccines Completed 09/17/2016, 06/22/20 HPV Vaccines Completed 02/20/2019, 09/17/2016 HIV Screening Completed 05/31/2022 Hepatitis C Screening Completed 05/31/2022 Hepatitis B Vaccines Completed 07/31/2022, 06/11/2022, 01/25/2005, Additional history exists Meningococcal Vaccine Completed 07/31/2022 , 07/31/2022, 09/17/2016 RSV under 20 months Aged Out No longe r eligible based on patient's age to complete this topic Rotavirus Vaccines Aged Out No longer eligible based on patient's age to complete this topic Procedures Procedure Name Priority Date/Time Associated Diagnosis Comments PROPHYLAXIS - ADULT Routine 03/12/2024 3 :00 PM EDT PERIODIC ORAL EVALUATION - ESTABLISHED PATIENT Routine 03/12/2024 3:00 PM EDT CHLAMYDIA/N. GONORRHOEAE RNA, TMA, UROGENITAL Routine 12/31/2023 12:00 AM EDT UTI symptoms LIPID PANEL, STANDARD Routine 10/07/2023 9:53 AM EST BMI 37.0-37.9, adult ZZZ HISTORICAL HEPATITIS C AB W/REFL TO HCV RNA, QN, PCR Routine 05/31/2022 4:40 PM EDT HIV 1/2 ANTIGEN/ANTIBODY, FOURTH GENERATION W/RFL Routine 05/31/2022 4:40 PM EDT BITEWINGS - 4 RADIOGRAPHIC IMAGES Routine 05/15/2022 12:00 AM EDT from Last 3 Months or Most Recently Relevant to Health Maintenance Results * Chlamydia/N. Gonorrhoeae RNA, TMA, Urogenitial (12/31/2023 12:00 AM EDT) CT PCR NOT DETECTED Not Detect. [facility] Comment:A not detected test result does not exclude the possibilityof infection because test results can be affected byimproper specimen collection, concurrent antibiotic therapy,or the number of organisms in the specimen which may bebelow the sensitivity of the test. As with many diagnostictests, results from the Xpert CT/NG assay should beinterpreted in conjunction with other laboratory andclinical data available to the clinician.Xpert CT/NG performance has not been evaluated in patientsless than 14 years of age. The assay should not be used forthe evaluationof suspected sexual abuse or for other medico-legalindications. Additional testing is recommended in anycircumstance when false positive or false negative resultscould lead to adverse medical, social or psychologicalconsequences. NG PCR NOT DETECTED Not Detect. [facility] Comment:A not detected test result does not exclude the possibilityof infection because test results can be affected byimproper specimen collection, concurrent antibiotic therapy,or the number of organisms in the specimen which may bebelow the sensitivity of the test. As with many diagnostictests, results from the Xpert CT/NG assay should beinterpreted in conjunction with other laboratory andclinical data available to the clinician.Xpert CT/NG performance has not been evaluated in patientsless than 14 years of age. The assay should not be used forthe evaluationof suspected sexual abuse or for other medico-legalindications. Additional testing is recommended in anycircumstance when false positive or false negative resultscould lead to adverse medical, social or psychologicalconsequences. Urine (Vaginal Swab) 12/31/2023 12/31/2023 Narrative [facility] - 01/01/2024 1:05 PM EDT Vaginal us Tigist Fish MD LAB MICROBIOLOGY - GENER AL ORDERABLES Final Result Performing Organization Address [facility] Co de Phone Number [facility] [address] [place] [phone] * Lipid Panel, Standard (10/07/2023 9:53 AM EST) Triglycerides 50 <150 mg/dL [facility] Comment:Desirable Triglyceri de: less than 90 mg/dLBorderline High Triglyceride: 90-129 mg/dLHigh Triglyceride: greater than 130 mg/dL Cholesterol 136 <200 mg/dL [facility] Comment:Desirable Cholestero l: less than 170 mg/dLBorderline High Cholesterol: 170-199 mg/dLHigh Cholesterol: greater than 200 mg/dL LDL Cholesterol Calculated 84 <100 mg/dL [facility] Comment:Desirable LDL: less than 110 mg/dLBorderline LDL: 110-129 mg/dLHigh LDL: greater than or equal to 130 mg/dL HDL Cholesterol 42 >40 mg/dL [facility] Comment:Desirable HDL: great er than 45 mg/dLBorderline HDL: 40-45 mg/dLLow HDL: less than 40 mg/dL Note: This HDL assay may give artificially low results in patients with liver disease. Blood Venous blood specimen / Unknown 10/07/2023 9:53 AM EST 10/07/2023 11:29 AM EST us Lidia Mendiola NP LAB BLOOD ORDERABLES Final Resul t Performing Organization Address [facility] Co de Phone Number [facility] [address] [place] [phone] * HEPATITIS C AB W/REFL TO HCV RNA, QN, PCR (05/31/2022 4:40 PM EDT) HEPATITIS C ANTIBODY NON-REACTI VE NON-REACT KERRI [facility] INDEX 0.09 <1.00 [facility] Comment: ?? HCV antibody was non-reactive. There is no laboratory ?? evidence of HCV infection. ?? In most cases, no further action is required. However, if recent HCV exposure is suspected, a test for HCV RNA (test code 46719) is suggested. ?? For additional information please refer to http://[employer]faq/NXV42u6 (This link is being provided for informational/ educational purposes only.) ?? 05/31/2022 4:40 PM EDT us Jonny Reynolds MD HISTORICAL/NON ORDERABLE LABS Fi nal Result [facility] * HIV 1/2 ANTIGEN/ANTIBODY,FOURTH GENERATION W/RFL (05/31/2022 4:40 PM EDT) HIV-1/2 ANTIGEN AND ANTIBODIES, 4TH GENERATION W/ REFLEX NON-REACT KERRI NON-REACT KERRI [facility] Comment: HIV-1 antigen and HIV-1/HIV-2 antibodies were not detected. There is no laboratory evidence of HIV infection. ?? PLEASE NOTE: This information has been disclosed to you from records whose confidentiality may be protected by state law. ??If your state requires such protection, then the state law prohibits you from making any further disclosure of the information without the specific written consent of the person to whom it pertains, or as otherwise permitted by law. A general authorization for the release of medical or other information is NOT sufficient for this purpose. ? For additional information please refer to http://[employer]faq/CHQ957 (This link is being provided for informational/ educational purposes only.) ? The performance of this assay has not been clinically validated in patients less than 2 years old. ?? 05/31/2022 4:40 PM EDT us Jonny Reynolds MD LAB BLOOD ORDERABLES Final Resul t [facility] from Last 3 Months or Most Recently Relevant to Health Maintenance Insurance [facility] C3 DENTAL-[facility] MEDICAID STAND CHILD Care Teams Optics Engineer Relationship Specialty Start Date End Date Lidia Mendiola NP [address] [place] [phone] PCP - General Family Medicine 09/10/23
== END 2024-11-10 14:03 | disposition home or self-care (01) ==
DX: I42.9 Cardiomyopathy, unspecified (principal); Z09 Encounter for follow-up examination after completed treatment for conditions other than malignant neoplasm
CPT/HCPCS: 99214

== ENCOUNTER → 2024-11-10 13:29 | Outpatient (BNVA) | payer MEDICAID, SELFPAY | DX: Z09 Encounter for follow-up examination after completed treatment for conditions other than malignant neoplasm (principal); I42.9 Cardiomyopathy, unspecified | CPT/HCPCS: 99212 ==

== ENCOUNTER 2025-01-11 16:02 | Outpatient (REF) | payer MEDICAID, SELFPAY ==
--- OUTSIDE RECORDS SUMMARY | 2025-01-11 17:02 | XMS_ITS | Encounter Summary ---
Author Organization [employer] Address [address] [place] [address] [address] [place] [address] Care Team Providers Care Delivery Recruiter Name Role Phone Lidia Mendiola NP Primary Care Provider [phone] Reason for Visit * Reason Onset Date Comments Hospital Follow-up 10/02/2024 Encounter Details Date Type Department Care Team ([facility] st Contact Info) Description 10/02/2024 Telephone [facility] [address] [place], [place] [phone] Lidia Mendiola NP [address] [place], [place] [phone] Hospital Follow-up Social History Tobacco Use Types [...] from pt requesting a HDF appt. Hospital: [facility] Date of admission: 09/25/24 Discharge date: 09/28/24 Diagnosed: Gave *Send message to [employer] Care Coordinators Contact pt at [phone] documented in this encounter Plan of Treatment Upcoming Encounters Date Type Department Care Team ([facility] st Contact Info) Description 01/14/2025 10:15 AM EDT Office Visit [facility] [address] [place] [address] Brunilda Pearson MD [address] [place] [address] documented as of this encounter Visit Diagnoses Not on filedocumented in this encounter Additional Health Concerns Assessment Noted Time PHQ-9 Depression Total Score: 0 10/07/19 9:10 AM EST documented as of this encounter Care Teams Delivery Recruiter Relationship Specialty Start Date End Date Lidia Mendiola NP [address] [place] [address] PCP - General Family Medicine 09/10/23 documented as of this encounter
[2025-01-13 22:23] LABS: TS Negative Control Passed; TS Panel A 0; TS Panel B 0; TS Positive Control Passed; TSpotTB Negative (Negative)
== END 2025-01-11 16:03 | disposition home or self-care (01) ==
LOC: HO.HHCL 16:02
PROVIDERS: Visit Provider Nurse Practitioner Family
DX: Z11.1 Encounter for screening for respiratory tuberculosis (principal)
CPT/HCPCS: 36415; 86481

== ENCOUNTER 2025-07-05 09:11 | Outpatient (REF) | payer MEDICAID, SELFPAY ==
--- NOTE | ~2025-07-05 | XR_ITS ---
EXAMINATION: XR KNEE, RIGHT CLINICAL INFORMATION: right knee pain COMPARISON: None available. TECHNIQUE: 5 views of the right knee. FINDINGS: No fracture .Alignment is anatomic. Joint spaces are maintained. Subtle density in the suprapatellar space could be related to overlapping soft tissue densities versus small effusion. No abnormal soft tissue calcification. XR/XR knee RT 4V IMPRESSION: No radiographic evidence of acute osseous findings. Small effusion versus sequela of overlapping soft tissue densities in the suprapatellar space. Electronically signed by: Adebayo James MD 07/05/2025 10:25 AM SAHARA
--- OUTSIDE RECORDS SUMMARY | 2025-07-05 09:00 | XMS_ITS | Encounter Summary ---
Author Organization [employer] [facility] Address [address] [place] [address] [address] [place] [address] Care Team Providers Care Sql Server Developer Name Role Phone Lidia Mendiola NP Primary Care Provider [phone] Reason for Referral * Consultation (Routine) - Pending Review Specialty Diagnoses / Procedures Referred By Madhu belcher Referred To Contact Physical Therapy Diagnoses Acute pain of right knee Lidia Mendiola NP [address] [place] [address] Phone: tel: fax: Referral ID Status Reason Start Date Expiration Date Visits Requested Visits Authorized [id number] Pending Review Specialty Services Required 5 07/05/2026 1 1 * Consultation (Routine) - Pending Review Specialty Diagnoses / Procedures Referred By Madhu belcher Referred To Contact Orthopaedic Surgery Diagnoses Acute pain of right knee Lidia Mendiola NP [address] [place] [address] Phone: tel: fax: Referral ID Status Reason Start Date Expiration Date Visits Requested Visits Authorized [id number] Pending Review Specialty Services Required 5 07/05/2026 1 1 Reason for Visit * Reason Comments Knee Pain Encounter Details Date Type Department Care Team ([facility] st Contact Info) Description 07/05/2025 9:00 AM EST Office Visit [facility] [address] [place], [place] [phone] Acute pain of right knee (Primary Dx) Social History Tobacco Use Types Packs/Day Years Used Date Smoking Tobacco: Never Smokeless Tobacco: Never Tobacco Cessation:Counseling Given: Not Answered Alcohol Use Standard Drinks/Week Comments Never 0 (1 standard drink = 0.6 oz pur e alcohol) Depression Answer Date Recorded Patient Health Questionnaire-9 Score 0 01/21/2025 Patient Health Questionnaire-9 Score 0 01/21/2025 Last PHQ-9: Questionnaire Data Not on file 0 01/21/2025 Housing Stability Answer Date Recorded What is [...] things needed for daily living? No 05/27/2023 Intimate Partner Violence Answer Date R ecorded Within the last year, have y ou been afraid of your partner or ex-partner? 2 01/21/2025 Within the last year, have y ou been humiliated or emotionally abused in other ways by your partner or ex-partner? 2 Within the last year, have y ou been kicked, hit, slapped, or otherwise physically hurt by your partner or ex-partner? 2 01/21/2025 Within the last year, have y ou been raped or forced to have any kind of sexual activity by your partner or ex-partner? 2 01/21/2025 Utilities Answer Date Recorded In the past 12 months, has t he electric, gas, oil or water company threatened to shut off services in your home? No 05/27/2023 Depression Answer Date Recorded Patient Health Questionnaire-2 Score 0 01/21/2025 Internet Access Answer Date Recorded Internet Access Q1 Yes 09/01/2024 Internet Access Q2 Not on file 09/01/2024 Comments No Sex and Gender Information Value Date Recorded Sex Assigned at Female 06/11/2022 10:18 AM EDT Legal Sex Female 10:18 AM EDT Gender Identity Female 06/11/2022 10:18 AM EDT Sexual Orientation Straight 06/11/2022 10 :18 AM EDT documented as of this encounter Last Filed Vital Signs Vital Sign Reading Time Taken Comments Blood Pressure 132/79 07/05/2025 9:00 AM EST Pulse 76 07/05/2025 9:00 AM EST Temperature 36.1 C (97 F) 07/05/2025 9:00 AM EST Respiratory Rate 16 07/05/2025 9:00 AM EST Oxygen Saturation 97% 07/05/2025 9:00 AM EST Inhaled Oxygen Concentration - - Weight 115 kg (252 lb 9.6 oz) 07/05/2025 9:00 AM EST Height 162.6 cm (5' 4 ) 07/05/2025 9:00 AM EST Body Mass Index 43.36 07/05/2025 9:00 AM EST documented in this encounter Plan of Treatment Upcoming Encounters Date Type Department Care Team (Late st Contact Info) Description 07/16/2025 3:45 PM EST Office Visit [facility] [address] [place] [address] Lidia Mendiola NP [address] [place] [address] 07/30/2025 3:00 PM EST Office Visit [facility] [address] [place] [address] Titi العراقي DDS [address] [place] [address] 12/23/2025 2:15 PM EDT Office Visit [facility] [address] [place] [address] Hilda Ellis [address] [place] [address] Scheduled Orders Name Type Priority Associated Diagnoses Orde r Schedule XR Knee 4+ Views Right Imaging Routine Acute pain of right knee Expected: 07/05/2025, Expires: 07/05/2026 Scheduled Referrals Name Type Priority Associated Diagnoses Order Schedule Referral to Orthopaedic Surgery Outpatient Referral Routine Acute pain of right knee Expected: 07/05/2025 (Approximate), Expires: 07/05/2026 Referral to Physical Therapy Outpatient Referral Routine Acute pain of right knee Expected: 07/05/2025 (Approximate), Expires: 07/05/2026 documented as of this encounter Visit Diagnoses Diagnosis Acute pain of right knee- Primary documented in this encounter Additional Health Concerns Assessment Noted Time PHQ-9 Depression Total Score: 0 01/22/20 25 2:35 PM EDT documented as of this encounter Care Teams Sql Server Developer Relationship Specialty Start Date End Date Lidia Mendiola NP [address] [place] [address] PCP - General Family Medicine 09/10/23 documented as of this encounter
--- OUTSIDE RECORDS SUMMARY | 2025-07-05 10:12 | XMS_ITS | Encounter Summary ---
Author Organization [employer] Address [address] [place] [address] [address] [place] [address] Care Team Providers Care Corn Husker Name Role Phone Anne Berry DO Primary Care Provider [phone] Lynette SchniederP Primary Care Provider [phone] Lidia Mendiola NP Primary Care Provider [phone] Reason for Visit * Reason Onset Date Comments Appointment Request 04/05/2023 Encounter Details Date Type Department Care Team ([facility] st Contact Info) Description 04/05/[address] [facility] [address] [place], [place] [phone] Anne Berry DO [address] [place], [place] [phone] Appointment Request Social History Tobacco Use Types [...] pt requesting a PE appointment for school. Speaking Unit Assembler did not see any availability. [place] [facility] [place] [phone] documented in this encounter Plan of Treatment Upcoming Encounters Date Type Department Care Team (Late st Contact Info) Description 07/16/2025 3:45 PM EST Office Visit [facility] [address] [place] [address] Lidia Mendiola, BILLY [address] [place] [address] 07/30/2025 3:00 PM EST Office Visit [facility] [address] [place] [address] Titi العراقي DDS [address] [place] [address] 12/23/2025 2:15 PM EDT Office Visit [facility] [address] [place] [address] Hilda Ellis [address] [place] [address] documented as of this encounter Visit Diagnoses Not on filedocumented in this encounter Care Teams Corn Husker Relationship Specialty Start Date End Date Anne Berry DO [address] [place] [address] PCP - General Pediatrics 08/12/18 04/15/23 Lynette Schneider FNP [address] [place] [address] PCP - General Family Medicine 04/16/23 09/09/23 Lidia Mendiola NP [address] [place] [address] PCP - General Family Medicine 09/10/23 documented as of this encounter
--- OUTSIDE RECORDS SUMMARY | 2025-07-05 10:12 | XMS_ITS | Encounter Summary ---
Author Organization [employer] Address [address] [place] [address] 7t [place] [address] Care Team Providers Care Field Sales Agent Name Role Phone Lidia Mendiola NP Primary Care Provider Reason for Visit * Reason Onset Date Comments Hospital Follow-up 10/02/2024 Encounter Details Date Type Department Care Team ([facility] st Contact Info) Description 10/02/2024 Telephone [facility] MED[facility] [address] [place], [place] [phone] Lidia Mendiola NP [address] [place], [place] [phone] Hospital Follow-up Social History Tobacco Use Types [...] pt requesting a HDF appt. Hospital: [facility] Date of admission: 09/25/24 Discharge date: 09/28/24 Diagnosed: Gave *Send message to [facility] Clinical Care Coordinators Contact pt at [phone] documented in this encounter Plan of Treatment Upcoming Encounters Date Type Department Care Team (Late st Contact Info) Description 07/16/2025 3:45 PM EST Office Visit [facility] MEDICINE [address] [place] [address] Lidia Mendiola NP [address] [place] [address] 07/30/2025 3:00 PM EST Office Visit [facility] ADULT DENTAL [address] [place] [address] Titi العراقي DDS [address] [place] [address] 12/23/2025 2:15 PM EDT Office Visit [facility] ADULT DENTAL [address] [place] [address] Hilda Ellis [address] [place] [address] documented as of this encounter Visit Diagnoses Not on filedocumented in this encounter Additional Health Concerns Assessment Noted Time PHQ-9 Depression Total Score: 0 10/07/19 24 9:10 AM EST documented as of this encounter Care Teams Field Sales Agent Relationship Specialty Start Date End Date Lidia Mendiola NP [address] [place] [address] PCP - General Family Medicine 09/10/23 documented as of this encounter
--- OUTSIDE RECORDS SUMMARY | 2025-07-05 10:12 | XMS_ITS | Encounter Summary ---
Author Organization [employer] [facility] Address [address] [place] [address] 7t [place] [address] Care Team Providers Care Cardiology Consultants Name Role Phone Anne Berry DO Primary Care Provider [phone] Lynette SchneiderP Primary Care Provider [phone] Lidia Mendiola NP Primary Care Provider [phone] Encounter Details Date Type Department Care Team (Late st Contact Info) Description 09/17/2022 Orders Only [facility] [address] [place] [address] Anne Berry DO [address] [place] [address] Social History Tobacco Use Types Packs/Day Years Used Date Smoking Tobacco: Never Assessed Comments Unknown Sex and Gender Information Value Date Recorded Sex Assigned at Female 06/11/2022 10:18 AM EDT Legal Sex Female 10:18 AM EDT Gender Identity Female 06/11/2022 10:18 AM EDT Sexual Orientation Straight 06/11/2022 10 :18 AM EDT documented as of this encounter Plan of Treatment Upcoming Encounters Date Type Department Care Team (Late st Contact Info) Description 07/16/2025 3:45 PM EST Office Visit [facility] [address] [place] [address] Lidia Mendiola, BILLY [address] [place] [address] 07/30/2025 3:00 PM EST Office Visit [facility] ADULT DENTAL [address] [place] [address] Titi العراقي DDS [address] [place] [address] 12/23/2025 2:15 PM EDT Office Visit [facility] ADULT DENTAL [address] [place] [address] Hilda Ellis [address] [place] [address] documented as of this encounter Visit Diagnoses Not on filedocumented in this encounter Care Teams Cardiology Consultants Relationship Specialty Start Date End Date Anne Berry DO [address] [place] [address] PCP - General Pediatrics 08/12/18 04/15/23 Lynette Schneider FNP [address] [place] [address] PCP - General Family Medicine 04/16/23 09/09/23 Lidia Mendiola NP [address] [place] [phone] PCP - General Family Medicine 09/10/23 documented as of this encounter
--- OUTSIDE RECORDS SUMMARY | 2025-07-05 10:12 | XMS_ITS | Clinical Summary ---
Author Organization [facility] Address [address] [place] [phone] Phone Care Team Providers Care Yard Conductor Name Role Phone Jonny Reynolds MD Primary Care Provider [phone] Evette Rodriguez MD Unavailable [email or web address] [email or web address] No known active allergies Medications No known medications Active Problems Problem Noted Date Diagnosed Date Dizziness and giddiness 07/25/2022 Family History Medical History Relation Comments Asthma Brother 1 Seizures Brother 2 Anxiety disorder Father Diabetes Maternal Grandfather Heart failure Maternal Grandfather Hypertension Maternal Grandfather Migraines Maternal Grandmother Migraines Maternal Uncle Relation Status Comments Brother 1 Brother 2 Father Maternal Grandfather Maternal Grandmother Maternal Uncle Alive Social History Tobacco Use Types Packs/Day Years Used Date Smoking Tobacco: Never Assessed Education Answer Date Recorded Are you interested in more education? Not on gene e 12/08/2022 Are you concerned about learning? Not on file 12/08/2022 No 12/08/2022 No 12/08/2022 Digital Access Answer Date Recorded No 01/06/2023 No 01/06/2023 Reliable internet access at home? Not on file 01/06/2023 Device with a working camera? Not on file Comments Unknown Sex and Gender Information Value Date Recorded Sex Assigned at Not on file Legal Sex Female 2:07 PM EDT Gender Identity Not on file Sexual Orientation Not on file Last Filed Vital Signs Vital Sign Reading Time Taken Comments Blood Pressure 111/73 07/25/2022 12:52 PM EST Pulse 81 07/25/2022 12:52 PM EST Temperature 36.6 C (97.9 F) 07/15/2022 7:37 PM EST Respiratory Rate 18 07/15/2022 7:37 PM EST Oxygen Saturation 98% 07/25/2022 12:52 PM EST Inhaled Oxygen Concentration - - Weight 92.5 kg (204 lb) 07/25/2022 12:52 PM EST Height 162 cm (5' 3.78 ) 07/25/2022 12:52 PM EST Body Mass Index 35.26 07/25/2022 12:52 PM EST Plan of Treatment Health Maintenance Due Date Last Done Comments DEVELOPMENTAL/BEHAVIORAL SCREENING (PHQ, PSC, or SWYC) 2007 DEPRESSION SCREENING 2016 SMOKING Hx and SMOKELESS TOBACCO SCREENING 2017 MENINGOCOCCAL VACCINES (B) (1 of 2 - Standard) 2020 ADOLESCENT UNIVERSAL LIPID SCREENING 2021 HEPATITIS C SCREENING 2022 HIV ONE-TIME SCREENING (18-65 YEARS) 2022 CHLAMYDIA SCREENING 07/15/2023 07/15/2022 INFLUENZA VACCINE (#1) 2025 , 05/29/2018, 09/17/2016, Additional history exists COVID-19 VACCINE ( season) 2025 12/06/2021, 07/05/2021, 06/14/2021 COMBINED DTaP,Tdap,Td (7 - Td or Tdap) 09/17/2026 09/17/2016, 11/25/2008, 12/05/2005, Additional history exists HIB VACCINES Completed 12/05/2005, 01/10, 2004, Additional history exists PNEUMOCOCCAL VACCINES (0-49 years) Completed 12/05/2005, 01/25/2005, 2004, Additional history exists MMR VACCINES Completed 11/25/2008, 08/24/2005 VARICELLA VACCINES Completed 11/25/2008, 08/24/2005 HEPATITIS A VACCINES Completed 09/17/2016, 06/22/20 15 MENINGOCOCCAL VACCINES (ACWY) Aged Out 09/17/2016 No longer eligible based on patient's age to complete this topic HPV VACCINES Completed 02/20/2019, 09/17/2016 Medical Devices Not on file Procedures Procedure Name Priority Date/Time Associated Diagnosis Comments CHLAMYDIA TRACHOMATIS AND NEISSERIA GONORRHOEAE NUCLEIC ACID DETECTION STAT 07/15/2022 5:43 PM EST from Last 3 Months or Most Recently Relevant to Health Maintenance Results * Chlamydia Trachomatis and Neisseria Gonorrhoeae Nucleic Acid Detection (07/15/2022 5:43 PM EST) CHLAMYDIA TRACHOMATIS Not Detected Not Detected [facility] NEISERIA GONORRHOEAE Not Detected Not Detected [facility] SPECIMEN TYPE URINE [facility] Urine (Urine) 07/15/2022 5:4 3 PM EST 07/15/2022 6:09 PM EST us Irina Juarez MD LAB GENERAL ORDERABLES Final Result [facility] [address] [place] [address] from Last 3 Months or Most Recently Relevant to Health Maintenance Insurance C3 ACO C3 ACO C3 ACO C3 ACO C3 ACO C3 ACO C3 ACO C3 ACO [facility] C3 ACO Care Teams Yard Conductor Relationship Specialty Start Date End Date Jonny Reynolds MD [address] [place] [phone] [email or web address] PCP - General Emergency Medicine 07/11/22 Evette Rodriguez MD [address] [place] [address] [email or web address] Pediatric Cardiology 07/11/22 Additional Source Comments The information contained in this document represents components of the legal health record. It is not the complete legal health record.[facility]
--- OUTSIDE RECORDS SUMMARY | 2025-07-05 10:12 | XMS_ITS | Encounter Summary ---
Author Organization [employer] Address [address] 7t [place] [address] Care Team Providers Care Medical Staff Director Name Role Phone MauryLidia BILLY Primary Care Provider [phone] Encounter Details Date Type Department Care Team (Latest Contact Info) Description 07/05/2025 Travel Social History Tobacco Use Types Packs/Day Years [...] the past 12 months, has t he [employer] oil or water company threatened to shut [...] Description 07/16/2025 3:45 PM EST Office Visit [facility] MEDICINE [address] [place] [address] Lidia Mendiola NP [address] [place] [address] 07/30/2025 3:00 PM EST Office Visit [facility] ADULT DENTAL [address] [place] [address] Titi العراقي DDS [address] [place] [address] 12/23/2025 2:15 PM EDT Office Visit [facility] ADULT DENTAL [address] [place] [address] Hilda Ellis [address] [place] [address] documented as of this encounter Visit Diagnoses Not on filedocumented in this encounter Additional Health Concerns Assessment Noted Time PHQ-9 Depression Total Score: 0 01/22/20 25 2:35 PM EDT documented as of this encounter Care Teams Medical Staff Director Relationship Specialty Start Date End Date Lidia Mendiola NP [address] [place] [phone] PCP - General Family Medicine 09/10/23 documented as of this encounter
--- OUTSIDE RECORDS SUMMARY | 2025-07-05 10:12 | XMS_ITS | Encounter Summary ---
Author Organization [employer] Address [address] [place] [address] 7t [place] [address] Care Team Providers Care Transformer Inspector Name Role Phone Lidia Mendiola NP Primary Care Provider [phone] Reason for Visit * Reason Onset Date Comments Appointment Request 06/25/2025 Encounter Details Date Type Department Care Team ([facility] Contact Info) Description 06/25/2025 Telephone [facility] MEDICINE [address] [place], [place] [phone] Lidia Mendiola NP [address] [place], [place] [phone] Appointment Request Social History Tobacco Use Types [...] encounter Miscellaneous Notes * Telephone Encounter - Nataly Barreto - 06/25/2025 9:22 AM EST Tc from pt requesting to schedule a f/u apt , needs a letter from pcp in order to move . Pt states she talked to HIM and they advise she see pcp Contact pt at [phone] documented in this encounter Plan of Treatment Upcoming Encounters Date Type Department Care Team ([facility] st Contact Info) Description 07/16/2025 3:45 PM EST Office Visit [facility] MEDICINE [address] [place] [address] Lidia Mendiola NP [address] [place] [address] 07/30/2025 3:00 PM EST Office Visit [facility] ADULT DENTAL [address] [place] [address] Titi العراقي DDS [address] [place] [address] 12/23/2025 2:15 PM EDT Office Visit [facility] ADULT DENTAL [address] [place] [address] Hilda Ellis [address] [place] [address] documented as of this encounter Visit Diagnoses Not on filedocumented in this encounter Additional Health Concerns Assessment Noted Time PHQ-9 Depression Total Score: 0 01/22/20 25 2:35 PM EDT documented as of this encounter Care Teams Transformer Inspector Relationship Specialty Start Date End Date Lidia Mendiola NP [address] [place] [address] PCP - General Family Medicine 09/10/23 documented as of this encounter
--- OUTSIDE RECORDS SUMMARY | 2025-07-05 10:12 | XMS_ITS | Encounter Summary ---
Author Organization [employer] [facility] Address [address] [place] [address] 7t [place] [address] Care Team Providers Care Disability Representative Name Role Phone Anne Berry DO Primary Care Provider [phone] Lynette SchneiderP Primary Care Provider [phone] Lidia Mendiola NP Primary Care Provider [phone] Encounter Details Date Type Department Care Team (Late st Contact Info) Description 07/16/[address] [facility] MED[facility] [address] [place] [address] Anne Berry DO [address] [place] [address] Social History Tobacco Use Types Packs/Day Years [...] Description 07/16/2025 3:45 PM EST Office Visit [facility] [address] [place] [address] Lidia Mendiola, BILLY [address] [place] [address] 07/30/2025 3:00 PM EST Office Visit [facility] ADULT DENTAL [address] [place] [phone] Titi العراقي DDS [address] [place] [address] 12/23/2025 2:15 PM EDT Office Visit [facility] ADULT DENTAL [address] [place] [address] Hilda Ellis [address] [place] [address] documented as of this encounter Visit Diagnoses Not on filedocumented in this encounter Care Teams Disability Representative Relationship Specialty Start Date End Date Anne Berry DO [address] [place], [place] [phone] PCP - General Pediatrics 08/12/18 04/15/23 Lynette Schneider FNP [address] [place] [address] PCP - General Family Medicine 04/16/23 09/09/23 Lidia Mendiola NP [address] [place] [phone] PCP - General Family Medicine 09/10/23 documented as of this encounter
--- OUTSIDE RECORDS SUMMARY | 2025-07-05 10:12 | XMS_ITS | Encounter Summary ---
Author Organization [employer] Address [address] [place] [address] 7t [place] [address] Care Team Providers Care Clinic Licensed Practical Nurse Name Role Phone Lidia Mendiola NP Primary Care Provider [phone] Reason for Visit * Reason Onset Date Comments Results 01/24/2024 Encounter Details Date Type Department Care Team ([facility] st Contact Info) Description 01/24/2024 Telephone [facility] [address] [place], [place] [phone] Lidia Mendiola NP [address] [place] [address] Results Social History Tobacco Use Types Packs/Day [...] Description 07/16/2025 3:45 PM EST Office Visit [facility] [address] [place] [address] Lidia Mendiola NP [address] [place] [address] 07/30/2025 3:00 PM EST Office Visit [facility] ADULT DENTAL [address] [place] [address] Titi العراقي DDS [address] [place] [address] 12/23/2025 2:15 PM EDT Office Visit [facility] ADULT DENTAL [address] [place] [address] Warner Ellisaris [address] [place] [address] documented as of this encounter Visit Diagnoses Not on filedocumented in this encounter Additional Health Concerns Assessment Noted Time PHQ-9 Depression Total Score: 0 10/07/19 9:10 AM EST documented as of this encounter Care Teams Clinic Licensed Practical Nurse Relationship Specialty Start Date End Date Lidia Mendiola NP [address] [place] [address] PCP - General Family Medicine 09/10/23 documented as of this encounter
--- OUTSIDE RECORDS SUMMARY | 2025-07-05 10:12 | XMS_ITS | Clinical Summary ---
Author Organization [employer] Address [address] [place] [address] [address] [place] [address] Care Team Providers Care Utilization Review Specialist Name Role Phone Maury Lidia BILLY Primary Care Provider [phone] Allergies No known active allergies Medications calcium carbonate EX (Tums Smoothies) 750 MG chewable tablet Chew 1 tablet Once per day. 1 Active hydrocortisone 2.5 % ointment Apply 2.5 Application. topically if needed for itching. 1 Active melatonin 5 MG tablet Take 1 tablet by mouth at bedtime. 1 Active triamcinolone (Kenalog) 0.1 % creamIndication s:Rash Apply a small amount to affected area on arm BID as directed 15 g 2 3 Active Additional Information Patient not taking.Reported on 06/23/2025 acetaminophen (Tylenol) 500 MG tablet Take 2 tablets (1,000 mg) by mouth every 6 (six) hours if needed for moderate pain or fever for up to 25 doses. 30 tablet 3 Active Additional Information Patient not taking.Reported on 06/23/2025 ibuprofen 400 MG tablet 1 tab every 8 h with food x 7 days 21 tablet 4 Active Additional Information Patient not taking.Reported on 06/23/2025 multivitamin () 27-0.8 MG tablet Take 1 tablet by mouth Once per day. 30 tablet 11 4 Active Additional Information Patient not taking.Reported on 06/23/2025 ulipristal (Amira) 30 mg tabletIndicatio ns:Family planning Take once after unprotected intercourse as soon as possible, can take up to 5d after intercourse. Do not use more than once in menstrual cycle. 1 tablet 11 5 Active Additional Information Patient not taking.Reported on 06/23/2025 diclofenac sodium 3 % gel Apply topically 2 times daily for 10 days. 100 g 1 5 07/15/20 25 Active lidocaine (Lidoderm) 5 % patch Apply 1 patch topically Once per day. Remove & discard patch within 12 hours or as directed by MD. 30 patch Active Active Problems Problem Noted Date Diagnosed Date Multiple impacted teeth 06/23/2025 Vaginal delivery 09/28/2024 Gestational hypertension, third trimester 2024 Overview (01/21/2025): Dx'd in labor, [facility] labs: Dental caries 03/12/2024 Supragingival dental plaque 03/12/2024 [...] depo moving forward but declines alternative today Obesity in adolescent 07/02/2022 Overview (06/23/2025): Pt is 11 weeks as of due Sep 26, 2024. Resolved Problems Problem Noted Date Diagnosed Date Resolved Date Dizziness and giddiness 07/25/202201/10 COVID-19 07/02/2022 01/21/2025 Encounters Date Type Department Care Team Description 07/05/2025 9:00 AM EST Office Visit [facility] [address] [place] [phone] Acute pain of right knee (Primary Dx) 07/05/2025 Travel 06/25/2025 Telephone [facility] [address] [place] [address] Lidia Mendiola NP appt request 06/25/2025 Telephone [facility] [address] [place] [address] Lidia Mendiola NP Appointment Request 06/23/2025 8:45 AM EST Office Visit [facility] [address] [place] [address] Hilda Ellis Dental caries (Primary Dx); Supragingival dental plaque; Multiple impacted teeth from Last 3 Months Immunizations Immunization Administration Dates Next Due DTaP, 5 pertussis [...] Mass Index 43.36 07/05/2025 9:00 AM EST Plan of Treatment Upcoming Encounters Date Type Department Care Team (Late st Contact Info) Description 07/16/2025 3:45 PM EST Office Visit [facility] [address] [place] [address] Lidia Mendiola NP [address] [place] [address] 07/30/2025 3:00 PM EST Office Visit [facility] [address] [place] [address] Titi العراقي DDS [address] [place] [address] 12/23/2025 2:15 PM EDT Office Visit [facility] [address] [place] [address] Hilda Ellis [address] [place] [address] Health Maintenance Due Date Last Done Comments Family Planning (PISQ) 2019 Meningococcal B Vaccine (1 of 2 - Standard) 2020 COVID-19 Vaccine ( season) 2025 12/06/2021, 12/06/2021, 07/05/2021, Additional history exists SDOH Screening 09/01/2025 09/01/2024 Dental Oral Exam 12/22/2025 06/23/2025, 08/2023, 05/15/2022 Dental Prophylaxis 12/22/2025 06/23/2025, 0 03/12/2024, 05/15/2022 Alcohol/Substance Use Screening 01/21/2026 01/21/2025 Depression Screening 01/21/2026 01/21/2025, 01/22/20 25 Disability Screening 01/21/2026 01/21/2025 Chlamydia and Gonorrhea Screening 02/25/2026 02/25/2025, 02/25/2025, 09/07/2024, Additional history exists Dental X-Ray: Bitewings 06/24/2026 06/23/2025, 05/15 Tobacco Screening 07/05/2026 07/05/2025 DTaP/Tdap/Td Vaccines (7 - Td or Tdap) 09/17/2026 09/17/2016, 11/25/2008, 12/05/2005, Additional history exists Dental X-Ray: Full Mouth 06/24/2028 06/23/2025 Lipid Panel 10/07/2028 10/07/2023 Zoster Vaccines (1 of 2) 2054 RSV Patients and Patients Aged 60 years or older (1 - 1-dose 75+ series) 2079 HIB Vaccines Completed 12/05/2005, 01/10, 2004, Additional history exists Pneumococcal Vaccine: Pediatrics (0 to 5 Years) and At-Risk Patients (6 to 49) Years Completed 12/05/2005, 01/25/2005, 2004, Additional history exists IPV Vaccines Completed 11/25/2008, 01/10, 2004, Additional history exists Hepatitis A Vaccines Completed 09/17/2016, 06/22/20 15 HPV Vaccines Completed 02/20/2019, 09/17/2016 HIV Screening Completed 05/31/2022 Hepatitis C Screening Completed 05/31/2022 Hepatitis B Vaccines Completed 07/31/2022, 06/11/2022, 01/25/2005, Additional history exists Meningococcal Vaccine Completed 07/31/2022 , 07/31/2022, 09/17/2016 Influenza Vaccine Completed 04/21/2025, , 05/29/2018, Additional history exists RSV under 20 months Aged Out No longe r eligible based on patient's age to complete this topic Rotavirus Vaccines Aged Out No longer eligible based on patient's age to complete this topic Procedures Procedure Name Priority Date/Time Associated Diagnosis Comments PERIODIC ORAL EVALUATION - ESTABLISHED PATIENT Routine 06/23/2025 8:45 AM EST CASE PRESENTATION, DETAILED AND EXTENSIVE TREATMENT PLANNING Routine 06/23/2025 8:45 AM EST Dental caries Supragingival dental plaque Multiple impacted teeth Full PROPHYLAXIS - ADULT Routine 06/23/2025 8:45 AM EST Dental caries Supragingival dental plaque Multiple impacted teeth INTRAORAL - COMPLETE SERIES OF RADIOGRAPHIC IMAGES Routine 06/23/2025 8:45 AM EST Dental caries Supragingival dental plaque Multiple impacted teeth CHLAMYDIA/N. GONORRHOEAE RNA, TMA, UROGENITAL Routine 12/31/2023 12:00 AM EDT UTI symptoms LIPID PANEL, STANDARD Routine 10/07/2023 9:53 AM EST BMI 37.0-37.9, adult ZZZ HISTORICAL HEPATITIS C AB W/REFL TO HCV RNA, QN, PCR Routine 05/31/2022 4:40 PM EDT HIV 1/2 ANTIGEN/ANTIBODY, FOURTH GENERATION W/RFL Routine 05/31/2022 4:40 PM EDT from Last 3 Months or Most Recently Relevant to Health Maintenance Results * Chlamydia/N. Gonorrhoeae RNA, TMA, Urogenitial (12/31/2023 12:00 AM EDT) CT PCR NOT DETECTED Not Detect. [facility] Comment:A not detected test result [...] psychologicalconsequences. NG PCR NOT DETECTED Not Detect. [facility] Comment:A not detected test result [...] psychologicalconsequences. Urine (Vaginal Swab) 12/31/2023 12/31/2023 Narrative [facility] - 01/01/2024 1:05 PM EDT Vaginal us Tigist Fish MD LAB MICROBIOLOGY - GENER AL ORDERABLES Final Result [facility] [address] [place] [phone] * Lipid Panel, Standard (10/07/2023 9:53 AM EST) Triglycerides 50 <150 mg/dL [facility] Comment:Desirable Triglyceri de: less than 90 mg/dLBorderline High Triglyceride: 90-129 mg/dLHigh Triglyceride: greater than 130 mg/dL Cholesterol 136 <200 mg/dL [facility] Comment:Desirable Cholestero l: less than 170 mg/dLBorderline High Cholesterol: 170-199 mg/dLHigh Cholesterol: greater than 200 mg/dL LDL Cholesterol Calculated 84 <100 mg/dL [facility] Comment:Desirable LDL: less than 110 mg/dLBorderline LDL: 110-129 mg/dLHigh LDL: greater than or equal to 130 mg/dL HDL Cholesterol 42 >40 mg/dL [facility] Comment:Desirable HDL: great er than 45 mg/dLBorderline HDL: 40-45 mg/dLLow HDL: less than 40 mg/dL Note: This HDL assay may give artificially low results in patients with liver disease. Blood Venous blood specimen / Unknown 10/07/2023 9:53 AM EST 10/07/2023 11:29 AM EST Lidia Mendiola NP LAB BLOOD ORDERABLES Final Resul t Performing Organization Address City/[facility] Co de Phone Number [facility] [address] [place] [phone] * HEPATITIS C AB W/REFL TO HCV RNA, QN, PCR (05/31/2022 4:40 PM EDT) HEPATITIS C ANTIBODY NON-REACTI VE NON-REACT KERRI [facility] INDEX 0.09 <1.00 [facility] Comment: HCV antibody was non-reactive. There is no laboratory evidence of HCV infection. In most cases, no further action is required. However, if recent HCV exposure is suspected, a test for HCV RNA (test code 63152) is suggested. For additional information please refer to http://education.STARFACE.incuBET/faq/CRG84w8 (This link is being provided for informational/ educational purposes only.) 05/31/2022 4:40 PM EDT us Jonny Reynolds MD HISTORICAL/NON ORDERABLE LABS Fi nal Result Performing Organization Address City/[facility]/ZIP Co de Phone Number [facility] * HIV 1/2 ANTIGEN/ANTIBODY,FOURTH GENERATION W/RFL (05/31/2022 4:40 PM EDT) HIV-1/2 ANTIGEN AND ANTIBODIES, 4TH GENERATION W/ REFLEX NON-REACT KERRI NON-REACT KERRI [facility] Comment: HIV-1 antigen and HIV-1/HIV-2 antibodies were not detected. There is no laboratory evidence of HIV infection. PLEASE NOTE: This information has been disclosed to you from records whose confidentiality may be protected by state law. If your state requires such protection, then the state law prohibits you from making any further disclosure of the information without the specific written consent of the person to whom it pertains, or as otherwise permitted by law. A general authorization for the release of medical or other information is NOT sufficient for this purpose. For additional information please refer to http://education.Quolaw/faq/MWY610 (This link is being provided for informational/ educational purposes only.) The performance of this assay has not been clinically validated in patients less than 2 years old. 05/31/2022 4:40 PM EDT Jonny Reynolds MD LAB BLOOD ORDERABLES Final Resul t [facility] from Last 3 Months or Most Recently Relevant to Health Maintenance Insurance C3 [facility] MEDICAID STAND CHILD Care Teams Utilization Review Specialist Relationship Specialty Start Date End Date Lidia Mendiola NP [address] [place] [phone] PCP - General Family Medicine 09/10/23
== END 2025-07-05 09:12 | disposition home or self-care (01) ==
LOC: HO.HHCX 09:11
PROVIDERS: PCP Nurse Practitioner Family; Visit Provider Nurse Practitioner Family
DX: M25.561 Pain in right knee (principal)
CPT/HCPCS: 73564

== ENCOUNTER → 2025-07-05 09:37 | Outpatient (BNV) | payer MEDICAID, SELFPAY | PROVIDERS: PCP Nurse Practitioner Family; Visit Provider Radiology Diagnostic Ultrasound | DX: M25.561 Pain in right knee (principal) | CPT/HCPCS: 73564 ==

== ENCOUNTER 2025-07-11 08:58 | Emergency (ER) | payer MEDICAID, SELFPAY ==
--- NOTE | ~2025-07-11 | US_ITS ---
CLINICAL HISTORY: +hcg, lower abd pain US female pelvis LMP:06/12/25. Positive beta HCG level of 47 Technique: Ultrasound examination of the pelvis was performed with transabdominal and transvaginal technique for better visualization of the endometrium and adnexa. Images include: color Doppler and spectral Doppler waveforms. Comparison: None available Findings: No identified intrauterine or extra uterine gestation. Anteverted uterus measuring 7.8 x 4.1 x 4.9cm without masses. Punctate echogenic lesion at the junction of the endometrium and myometrium could be a small calcification, although shadowing is not identified. The endometrium measures 1.3 cm in thickness. Trace fluid in the endometrial canal. The right ovary is normal in size, measuring 3.0 x 1.7 x 1.7cm, volume of 4.5mL. There is normal echogenicity and vascularity. No lesions. The left ovary is normal in size, measuring 2.5 x 1.8 x 2.0cm, volume of 4.7mL. There is normal echogenicity and vascularity. No lesions. There is a trace amount of fluid in the cul-de-sac, which is likely physiologic. Impression: No identified intrauterine or extra uterine gestation, as expected with a beta HCG level of 47. The differential diagnosis includes a normal early , miscarriage and nonvisualized ectopic . Serial beta HCG levels are recommended. This document has been electronically signed by: Luciana Tee MD on 07/11/2025 16:10:33
[2025-07-11 09:03] VITALS: BP 117/58; PULSE 83; RESP 16; TEMP 36.6; O2SAT 100; BMI 43.1
[2025-07-11 09:43] LABS: MANUAL DIFF FLAG NO
[2025-07-11 09:45] LABS: Hematocrit 39.5 % (37.0-47.0); Hemoglobin 12.7 g/dl (12.0-16.0); Imm Gran Abs Auto 0.03 X10*3/uL (0.00-0.03); Imm Gran Pct Auto 0.4 % (0.0-0.4); Lymphocytes Absolute Auto 2.6 X10*3/uL (1.2-4.9); Mean Corpuscular HGB Conc 32.2 g/dl (31.0-35.0); Mean Corpuscular Hemoglobin 27.1 pg (27.0-33.0); Mean Corpuscular Volume 84.4 fL (80.0-98.0); NRBC Abs Auto 0.000 X10*3/uL (0.0-0.012); NRBC Pct Auto 0.0 /100WBC (0.0-0.2); Platelet Count 343 X10*3/uL (160-400); Red Blood Count 4.68 X10*6/uL (4.20-5.50); White Blood Count 8.5 X10*3/uL (4.8-10.8)
[2025-07-11 10:06] LABS: Alanine Aminotransferase 15 U/L (0-31); Albumin Level 4.5 g/dL (3.5-5.0); Alkaline Phosphatase 81 U/L (39-117); Anion Gap 12 (12-20); Aspartate Amino Transferase 15 U/L (5-31); Blood Urea Nitrogen 20 mg/dL (9-16); Calcium 9.6 mg/dL (8.4-10.2); Carbon Dioxide 23 mmol/L (22-29); Chloride 109 mmol/L (96-108); Creatinine Clr Calc Pharmacy 150.0; Estimated Glomerular Filt Rate > 60; Lipase 15 U/L (8-78); Magnesium 1.8 mg/dL (1.6-2.6); Potassium 4.2 mmol/L (3.3-5.1); Sodium 140 mmol/L (135-145); Total Protein 7.0 g/dL (6.5-8.0)
[2025-07-11 10:36] LABS: Resp Syncy Virus RNA Qual PCR NEGATIVE (Negative); SARS COV2 PCR INHOUSE NEGATIVE (Negative)
--- OUTSIDE RECORDS SUMMARY | 2025-07-11 11:26 | XMS_ITS | Encounter Summary ---
Author Organization [employer] Address [address] [place] [address] [address] [place] [address] Care Team Providers Care Truck Striker Name Role Phone Lidia Mendiola NP Primary Care Provider [phone] Reason for Visit * Reason Onset Date Comments Hospital Follow-up 10/02/2024 Encounter Details Date Type Department Care Team ([facility] st Contact Info) Description 10/02/2024 Telephone [facility] [address] [place], [place] [phone] Lidia Mendiola NP [address] [place], [place] [phone] Hospital Follow-up Social History Tobacco Use Types [...] from pt requesting a HDF appt. Hospital: [facility] Date of admission: 09/25/24 Discharge date: 09/28/24 Diagnosed: Gave *Send message to [place] [facility] Coordinators Contact pt at [phone] documented in this encounter Plan of Treatment Upcoming Encounters Date Type Department Care Team (Late st Contact Info) Description 07/16/2025 3:45 PM EST Office Visit [facility] [address] [place] [address] Lidia Mendiola NP [address] [place] [address] 07/30/2025 3:00 PM EST Office Visit [facility] [address] [place] [address] Titi العراقي DDS [address] [place] [address] 12/23/2025 2:15 PM EDT Office Visit [facility] [address] [place] [address] Hilda Ellis [address] [place] [address] documented as of this encounter Visit Diagnoses Not on filedocumented in this encounter Additional Health Concerns Assessment Noted Time PHQ-9 Depression Total Score: 0 10/07/19 24 9:10 AM EST documented as of this encounter Care Teams Truck Striker Relationship Specialty Start Date End Date Lidia Mendiola NP [address] [place] [address] PCP - General Family Medicine 09/10/23 documented as of this encounter
--- OUTSIDE RECORDS SUMMARY | 2025-07-11 11:26 | XMS_ITS | Clinical Summary ---
Author Organization [facility] Address [address] [place] [phone] Phone Care Team Providers Care Customer Associate Name Role Phone Jonny Reynolds MD Primary Care Provider [phone] Evette Rodriguez MD Unavailable [email or web address] Allergies No known active allergies Medications [...] EST) CHLAMYDIA TRACHOMATIS Not Detected Not Detected [facility] NEISERIA GONORRHOEAE Not Detected Not Detected [facility] SPECIMEN TYPE URINE [facility] Urine (Urine) 07/15/2022 5:4 3 PM EST 07/15/2022 6:09 PM EST us Irina Juarez MD LAB GENERAL ORDERABLES Final Result [facility] [address] [place] [address] from Last 3 Months or Most Recently Relevant to Health Maintenance Insurance C3 ACO C3 ACO C3 ACO C3 ACO C3 ACO C3 ACO C3 ACO C3 ACO [facility] C3 ACO Care Teams Customer Associate Relationship Specialty Start Date End Date Jonny Reynolds MD [address] [place] [phone] [email or web address] PCP - General Emergency Medicine 07/11/22 Evette Rodriguez MD [address] [place] [phone] [email or web address] Pediatric Cardiology 07/11/22 Additional Source Comments The information contained in this document represents components of the legal health record. It is not the complete legal health record.[facility]
--- OUTSIDE RECORDS SUMMARY | 2025-07-11 11:26 | XMS_ITS | Clinical Summary ---
Author Organization [employer] Address [address] [place] [address] [address] [place] [address] Care Team Providers Care Electric Stove Mechanic Name Role Phone Maury Lidia BILLY Primary Care Provider [phone] Allergies No known active allergies Medications calcium [...] once in menstrual cycle. 1 tablet 11 Active Additional Information Patient not taking.Reported on 06/23/2025 diclofenac sodium 3 % gel Apply topically 2 times daily for 10 days. 100 g 1 07/06/2025 1:48 PM EST 07/16/20 25 Active lidocaine (Lidoderm) 5 % patch Apply 1 patch topically Once per day. Remove & discard patch within 12 hours or as directed by MD. 30 patch 07/06/2025 1:48 PM EST Active Active Problems Problem Noted Date Diagnosed Date Multiple impacted teeth 06/23/2025 Vaginal delivery 09/28/2024 Gestational hypertension, third trimester 2024 Overview (01/21/2025): Dx'd in labor, PIH labs: Dental caries 03/12/2024 Supragingival dental plaque [...] Encounters Date Type Department Care Team Description 07/11/2025 Orders Only GENERIC EXTERNAL DATA DEPARTMENT Provider, Generic External Data 07/05/2025 9:00 AM EST Office Visit [facility] [address] [place] [phone] Lidia Mendiola, BILLY Acute pain of right knee (Primary Dx) 07/05/2025 Travel 06/25/2025 Telephone [facility] [address] [place] [address] Lidia Mendiola NP appt request 06/25/2025 Telephone [facility] [address], [place] [phone] Lidia Mendiola NP Appointment Request 06/23/2025 8:45 AM EST Office Visit [facility] ADULT DENT[facility] [address], [place] [phone] Hilda Ellis Dental caries (Primary Dx); Supragingival [...] Description 07/16/2025 3:45 PM EST Office Visit [facility] [address] [place] [address] Lidia Mendiola NP [address] [place] [address] 07/30/2025 3:00 PM EST Office Visit [facility] [address] [place] [address] Titi العراقي DDS [address] [place] [address] 12/23/2025 2:15 PM EDT Office Visit [facility] [address] [place] [phone] Hilda Ellis [address] [place] [address] Health Maintenance Due Date Last Done Comments Family Planning (PISQ) 2019 Meningococcal B Vaccine (1 of 2 - Standard) 2020 COVID-19 Vaccine ( - season) 2025 12/06/2021, 12/06/2021, 07/05/2021, Additional history [...] history exists Hepatitis A Vaccines Completed 09/17/2016, 11/11/20 15 HPV Vaccines Completed 02/20/2019, 09/17/2016 HIV [...] Procedure Name Priority Date/Time Associated Diagnosis Comments HCG, TOTAL, QN Routine 07/11/2025 9:35 AM EST LIPASE Routine 07/11/2025 9:35 AM EST MAGNESIUM Routine 07/11/2025 9:35 AM EST COMPREHENSIVE METABOLIC PANEL Routine 07/11/2025 9:35 AM EST CBC WITH AUTO DIFFERENTIAL Routine 07/11/2025 9:35 AM EST SARS COV2/INFLUENZA A/B AND RSV RNA QL NAAT Routine 07/11/2025 9:35 AM EST XR KNEE 4+ VIEWS RIGHT Routine 9:57 AM EST Acute pain of right knee PERIODIC ORAL EVALUATION - ESTABLISHED PATIENT Routine [...] Recently Relevant to Health Maintenance Results * SARS-CoV-2 RNA, Influenza A/B, and RSV RNA, Ql NAAT (07/11/2025 9:35 AM EST) Influenza A PCR NEGATIVE Negative [facility] Influenza B PCR NEGATIVE Negative [facility] Resp Syncy Virus RNA Qual PCR NEGATIVE Negative [facility] SARS COV2 PCR NEGATIVE Negative [facility] Comment:All test results mus t be correlated with clinical findings.Negative results do not preclude SARS-CoV2, influenza Avirus, influenza B virus and/or RSV infectionand should not be used as the sole basis for treatment orother patient management decisions. Negative results must becombined with clinical observations, patient history, andepidemiological information.This test has not been evaluated for monitoring treatment ofinfection.This test has been authorized by the FDA under an EmergencyUse Authorization (EUA) for use by authorized laboratories.Testing performed on the [employer] GeneXpert utilizingreal-time RT-PCR.All SARS CoV2 and positive influenza A/B results arereported to [facility]. 07/11/2025 9:35 AM EST 07/11/2025 9:41 AM EST us Generic External Data Provider LAB MICROBIOLOGY - GENERAL ORDERABLES Final Result [facility] [address] [place] [phone] * CBC auto differential (07/11/2025 9:35 AM EST) White Blood Count 8.5 4.8 - 10.8 X10*3/uL [facility] Red Blood Count 4.68 4.20 - 5.50 X10*6/uL [facility] Hemoglobin 12.7 12.0 - 16.0 g/dl [facility] Hematocrit 39.5 37.0 - 47.0 % [facility] Mean Corpuscular Volume 84.4 80.0 - 98.0 fL [facility] Mean Corpuscular Hemoglobin 27.1 27.0 - 33.0 pg [facility] Mean Corpuscular HGB Conc 32.2 31.0 - 35.0 g/dl [facility] Red Cell Distribution Width 13.6 11.0 - 16.0 % [facility] Platelet Count 343 160 - 400 X10*3/uL [facility] Mean Platelet Volume 10.3 9.4 - 12.3 fL [facility] Neutrophils Percent Auto 62.4 45 - 73 % [facility] Imm Gran Pct Auto 0.4 0.0 - 0.4 % [facility] Lymphocytes Percent Auto 30.3 20 - 40 % [facility] Monocytes Percent Auto 5.1 2 - 11 % [facility] Eosinophils Percent Auto 1.3 0 - 4 % [facility] Basophils Percent Auto 0.5 0 - 2 % [facility] NRBC Pct Auto 0.0 0.0 - 0.2 /100WBC [facility] Neutrophils Absolute Auto 5.3 2.0 - 8.3 x10*3/uL [facility] Imm Gran Abs Auto 0.03 0.00 - 0.03 X10*3/uL [facility] Lymphocytes Absolute Auto 2.6 1.2 - 4.9 X10*3/uL [facility] Monocytes Absolute Auto 0.4 0.1 - 1.2 X10*3/uL [facility] Eosinophils Absolute Auto 0.1 0.0 - 0.4 X10*3/uL [facility] Basophils Absolute Auto 0.0 0.0 - 0.2 X10*3/uL [facility] NRBC Abs Auto 0.000 0.0 - 0.012 X10*3/uL [facility] 07/11/2025 9:35 AM EST 07/11/2025 9:41 AM EST us Generic External Data Provider LAB BLOOD ORDERAB LES Final Result Performing Organization Address City/[facility]/ZIP Co de Phone Number [facility] [address] [place] [phone] * hCG, Total, Quantitative (07/11/2025 9:35 AM EST) HCG Quantitative 47 mIU/mL [facility] Comment:Weeks post LMP Appro ximate hCG(Last Menstrual Period) Range (mIU/ml)3 - 4 weeks 9 - 1304 - 5 weeks 75 - 2,6005 - 6 weeks 850 - 20,8006 - 7 weeks 4000 - 100,2007 - 12 weeks 11,500 - 289,72074 - 16 weeks 18,300 - 137,17960 - 29 weeks (2nd trimester) 1,400 - 53,09042 - 41 weeks (3rd trimester) 940 - 60,000The Barber B- hCG assay is used for the early detection ofpregnancy; it cannot be used to diagnose any conditionunrelated to . If a B-hCG level is not supportedby the clinical evidence, results should be confirmed by analternative method (qualitative urine hCG, for example). 07/11/2025 9:35 AM EST 07/11/2025 9:41 AM EST us Generic External Data Provider LAB BLOOD ORDERAB LES Final Result Performing Organization Address City/[facility]/ZIP Co de Phone Number [facility] [address] [place] [phone] * Magnesium (07/11/2025 9:35 AM EST) Magnesium 1.8 1.6 - 2.6 mg/dL [facility] 07/11/2025 9:35 AM EST 07/11/2025 9:41 AM EST us Generic External Data Provider LAB BLOOD ORDERAB LES Final Result Performing Organization Address [facility] Co de Phone Number [facility] [address] [place] [phone] * Lipase (07/11/2025 9:35 AM EST) Lipase 15 8 - 78 U/L [facility] 07/11/2025 9:35 AM EST 07/11/2025 9:41 AM EST [employer] External Data Provider LAB BLOOD ORDERAB LES Final Result Performing Organization Address [facility] Phone Number [facility] [address] [place] [phone] * (ABNORMAL) Comprehensive Metabolic Panel (07/11/2025 9:35 AM EST) Sodium 140 135 - 145 mmol/L [facility] Potassium 4.2 3.3 - 5.1 mmol/L [facility] Chloride 109(H) 96 - 108 mmol/L [facility] Carbon Dioxide 23 22 - 29 mmol/L [facility] Anion Gap 12 12 - 20 [facility] Urea Nitrogen (BUN) 20(H) 9 - 16 mg/dL [facility] Creatinine, Serum 0.74 0.5 - 1.4 mg/dL [facility] Creatinine Clr Calc Pharmacy 150.0 [facility] Comment:Provided height and weight: 162.56 cm,113.9 kg.eGFR (calculated from the MDRD study equation) and eCrCl(calculated from the Cockcroft-Gault equation) are based ondifferent parameters and may not yield comparable results.If eCrCl result is absurd, please check patient'sheight/weight. Estimated Glomerular Filt Rate >60 [facility] Comment:Chronic Kidney Disea se: Estimated GFR < 60 mL/min/1.34f9Snfpuj Kidney Disease: Estimated GFR < 15 mL/min/1.73m2 Glucose 108 60 - 115 mg/dL [facility] Calcium 9.6 8.4 - 10.2 mg/dL [facility] Bilirubin, Total 0.6 0.0 - 1.0 mg/dL [facility] Aspartate Amino Transferase 15 5 - 31 U/L [facility] Alanine Aminotransferase 15 0 - 31 U/L [facility] Total Protein 7.0 6.5 - 8.0 g/dL [facility] Albumin Level 4.5 3.5 - 5.0 g/dL [facility] Alkaline Phosphatase 81 39 - 117 U/L [facility] 07/11/2025 9:35 AM EST 07/11/2025 9:41 AM EST us Generic External Data Provider LAB BLOOD ORDERAB LES Final Result Performing Organization Address City/State/[facility] de Phone Number [facility] [address] [place] [phone] * XR Knee 4+ Views Right (07/05/2025 9:57 AM EST) Anatomical Region Laterality Modality Lower Extremities, Knee Right Radiogra phic Imaging 07/05/2025 9:57 AM EST Narrative 07/05/2025 10:28 AM EST [address] [address] XRay Report Signed Patient: Yessi Burns MR#: [id number] [id number] : 2005 Acct:[id number] Age/Sex: 19 / F ADM Date: 07/05/25 Loc: HO.HHCX Attending Dr: Lidia Mendiola HOME HEALTH OCCUPATIONAL THERAPIST Ordering Physician: Lidia Mendiola NP Date of Service: 07/05/25 Procedure(s): XR knee RT 4V Accession Number(s): [id number] cc: Lidia Mendiola NP Reason for Exam: right knee pain EXAMINATION: XR KNEE, RIGHT CLINICAL INFORMATION: right knee pain COMPARISON: None available. TECHNIQUE: 5 views of the right knee. FINDINGS: No fracture .Alignment is anatomic. Joint spaces are maintained. Subtle density in the suprapatellar space could be related to overlapping soft tissue densities versus small effusion. No abnormal soft tissue calcification. XR/XR knee RT 4V IMPRESSION: No radiographic evidence of acute osseous findings. Small effusion versus sequela of overlapping soft tissue densities in the suprapatellar space. Electronically signed by: Adebayo James MD 07/05/2025 10:25 AM EST RP Dictated By: Adebayo James MD Signed By: <Electronically signed by Adebayo James MD in OV> 07/05/25 1025 DD/ 0957 TD/TT: 07/05/25 1000 Heel Padder: MELISSA Procedure Note Donotuseinterpreter, Image - 07/05/2025 [place] [address] XRay Report Signed Patient: Yessi BurnsMR#: [id number] : 2005Acct:[id number] Age/Sex: Date: 07/05/25 Loc: HO.HHCX Attending Dr: Lidia Mendiola NP Ordering Physician: Lidia Mendiola NP Date of Service: 07/05/25 Procedure(s): XR knee RT 4V Accession Number(s): [id number] cc: Lidia Mendiola NP Reason for Exam: right knee pain EXAMINATION: XR KNEE, RIGHT CLINICAL INFORMATION: right knee pain COMPARISON: None available. TECHNIQUE: 5 views of the right knee. FINDINGS: No fracture .Alignment is anatomic. Joint spaces are maintained. Subtle density in the suprapatellar space could be related to overlapping soft tissue densities versus small effusion. No abnormal soft tissue calcification. XR/XR knee RT 4V IMPRESSION: No radiographic evidence of acute osseous findings. Small effusion versus sequela of overlapping soft tissue densities in the suprapatellar space. Electronically signed by: Adebayo James MD 07/05/2025 10:25 AM EST RP Dictated By: Adebayo James MD Signed By: <Electronically signed by Adebayo James MD in OV> 07/05/25 1025 DD/ 0957 TD/TT: 07/05/25 1000 Heel Padder: MELISSA us Lidia Mendiola HOME HEALTH OCCUPATIONAL THERAPIST IMG XR PROCEDURES Final Result * Chlamydia/N. Gonorrhoeae RNA, TMA, Urogenitial (12/31/2023 12:00 AM EDT) CT PCR NOT DETECTED Not Detect. [facility] Comment:A not detected test result [...] psychologicalconsequences. NG PCR NOT DETECTED Not Detect. [facility] Comment:A not detected test result [...] or psychologicalconsequences. Urine (Vaginal Swab) 12/31/2023 12/31/2023 [facility] - 01/01/2024 1:05 PM EDT Vaginal us Tigist Fish MD LAB MICROBIOLOGY - GENER AL ORDERABLES Final Result Performing Organization Address [facility] de Phone Number [facility] [address] [place] [phone] * Lipid Panel, Standard (10/07/2023 9:53 AM EST) Triglycerides 50 <150 mg/dL [facility] Comment:Desirable Triglyceri de: less than 90 mg/dLBorderline High Triglyceride: 90-129 mg/dLHigh Triglyceride: greater than 130 mg/dL Cholesterol 136 <200 mg/dL [facility] Comment:Desirable Cholestero l: less than 170 mg/dLBorderline High Cholesterol: 170-199 mg/dLHigh Cholesterol: greater than 200 mg/dL LDL Cholesterol Calculated 84 <100 mg/dL [facility] Comment:Desirable LDL: less than 110 mg/dLBorderline LDL: 110-129 mg/dLHigh LDL: greater than or equal to 130 mg/dL HDL Cholesterol 42 >40 mg/dL [facility] Comment:Desirable HDL: great er than 45 mg/dLBorderline HDL: 40-45 mg/dLLow HDL: less than 40 mg/dL Note: This HDL assay may give artificially low results in patients with liver disease. Blood Venous blood specimen / Unknown 10/07/2023 9:53 AM EST 10/07/2023 11:29 AM EST us Lidia Mendiola NP LAB BLOOD ORDERABLES Final Resul t Performing Organization Address City/[facility] Co de Phone Number [facility] [address] [place] [phone] * HEPATITIS C AB W/REFL TO [...] a test for HCV RNA (test code 87669) is suggested. For additional information please refer to http://Unified.RIWI/faq/JCQ28w2 (This link is being provided for informational/ educational purposes only.) 05/31/2022 4:40 PM EDT us Jonny Reynolds MD HISTORICAL/NON ORDERABLE LABS Fi nal Result Performing Organization Address [facility] de Phone Number [facility] * [...] purpose. For additional information please refer to http://Unified.RIWI/faq/XWG030 (This link is being provided for informational/ educational purposes only.) The performance of this assay has not been clinically validated in patients less than 2 years old. 05/31/2022 4:40 PM EDT us Jonny Reynolds MD LAB BLOOD ORDERABLES Final Resul t Performing Organization Address [facility] de Phone Number [facility] from Last 3 Months or Most Recently Relevant to Health Maintenance Insurance [facility] C3 DENTAL-[facility] MEDICAID STAND CHILD Care Teams Electric Stove Mechanic Relationship Specialty Start Date End Date Lidia Mendiola NP [address] [place] [phone] PCP - General Family Medicine 09/10/23
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
--- OUTSIDE RECORDS SUMMARY | 2025-07-11 11:27 | XMS_ITS | Encounter Summary ---
Author Organization [facility] Address [address] [place] [address] Care Team Providers Care President & Founder Name Role Phone Jadyn Fabian MD Primary Care Provider [phone] Encounter Details Date Type Department Care Team (Latest Contact Info) Description 09/07/2024 Lab Requisition [facility] - Main Lab [address] [facility] [employer] [place] [address] Cholo Costa MD 299 [facility] [address] [place] [address] Encounter for screening for infections with a predominantly sexual mode of transmission Social History Tobacco Use Types Packs/Day Years Used Date Smoking Tobacco: Never Smokeless Tobacco: Never Alcohol Use Standard Drinks/Week Comments Not Currently 0 (1 standard drink = 0.6 oz pur e alcohol) Interpersonal Safety Answer Date Record ed Physical Abuse Unrecognized value 09/05/2024 Verbal Abuse Unrecognized value 09/05/2024 Comments Yes Sex and Gender Information [...] MOLECULAR DIAGNOSTICS METHOD 09/08/2024 8:50 AM EST [facility] Chlamydia trachomatis PCR Negative Negative LAB MOLECULAR DIAGNOSTICS METHOD 09/08/2024 8:50 AM EST [facility] Swab Cervix uteri structure / Unknown 09/07/2024 09/07/2024 6:28 PM EST us Cholo Costa MD LAB MICROBIOLOGY - GENERAL ORD ERABLES Final Result [facility] [address] [place] [address], documented in this encounter Visit Diagnoses Diagnosis Encounter for screening for infections with a predominantly sexual mode of transmission documented in this encounter Care Teams President & Founder Relationship Specialty Start Date End Date Jadyn Fabian MD [address] [place] [phone] PCP - General Family Medicine 07/22/24 documented as of this encounter
--- OUTSIDE RECORDS SUMMARY | 2025-07-11 11:27 | XMS_ITS | Encounter Summary ---
Author Organization [employer] [facility] Address [address] [place] [address] 7t [place] [address] Care Team Providers Care Sealer Operator Name Role Phone Anne Berry DO Primary Care Provider [phone] Lynette SchneiderP Primary Care Provider [phone] Lidia Mendiola NP Primary Care Provider [phone] Encounter Details Date Type Department Care Team (Late st Contact Info) Description 07/16/2022 Telephone [facility] MEDICINE [address] [place] [phone] Anne Berry DO [address] [place] [phone] Social History Tobacco Use Types Packs/Day Years [...] Description 07/16/2025 3:45 PM EST Office Visit [facility] MEDICINE [address] [place] [phone] Lidia Mendiola, BILLY [address] [place] [address] 07/30/2025 3:00 PM EST Office Visit [facility] ADULT DENTAL [address] [place] [address] [phone] Titi العراقي DDS [address] [place] [address] 12/23/2025 2:15 PM EDT Office Visit [facility] ADULT DENTAL [address] [place] [address] Hilda Ellis [address] [place] [address] documented as of this encounter Visit Diagnoses Not on filedocumented in this encounter Care Teams Sealer Operator Relationship Specialty Start Date End Date Anne Berry DO 230 [place], [place] [phone] PCP - General Pediatrics 08/12/18 04/15/23 Lynette Schneider FNP [address] [place] [address] PCP - General Family Medicine 04/16/23 09/09/23 Lidia Mendiola NP [address] [place] [address] [phone] PCP - General Family Medicine 09/10/23 documented as of this encounter
--- OUTSIDE RECORDS SUMMARY | 2025-07-11 11:27 | XMS_ITS | Encounter Summary ---
Author Organization [employer] [facility] Address [address] [place] [address] 7t [place] [address] Care Team Providers Care Estimating Engineer Name Role Phone Anne Berry DO Primary Care Provider [phone] Lynette SchneiderP Primary Care Provider [phone] Lidia Mendiola NP Primary Care Provider [phone] Encounter Details Date Type Department Care Team (Late st Contact Info) Description 09/17/[address] [facility]EDI[facility] [address] [place] [phone] Anne Berry DO [address] [place] [phone] Social History Tobacco Use Types Packs/Day Years [...] 07/16/2025 3:45 PM EST Office Visit [facility] MEDICINE [address] [place] [phone] Lidia Mendiola, BILLY [address] [place] [address] 07/30/2025 3:00 PM EST Office Visit [facility] ADULT DENTAL [address] [place] [phone] Titi العراقي DDS [address] [place] [address] 12/23/2025 2:15 PM EDT Office Visit [facility] ADULT DENTAL [address] [place] [address] Hilda Ellis [address] [place] [address] documented as of this encounter Visit Diagnoses Not on filedocumented in this encounter Care Teams Estimating Engineer Relationship Specialty Start Date End Date Anne Berry DO [address] [place] [address] PCP - General Pediatrics 08/12/18 04/15/23 Lynette Schneider FNP [address] [place] [address] PCP - General Family Medicine 04/16/23 09/09/23 Lidia Mendiola NP [address] [place] [address] [phone] PCP - General Family Medicine 09/10/23 documented as of this encounter
--- OUTSIDE RECORDS SUMMARY | 2025-07-11 11:27 | XMS_ITS | Encounter Summary ---
Author Organization [employer] Address [address] [place] [address] 7t [place] [address] Care Team Providers Care Firearms Sales Associate Name Role Phone Anne Berry DO Primary Care Provider Lynette SchneiderP Primary Care Provider [phone] Lidia Mendiola NP Primary Care Provider [phone] Reason for Visit * Reason Onset Date Comments Appointment Request 04/05/2023 Encounter Details Date Type Department Care Team ([facility] st Contact Info) Description 04/05/2023 Telephone [facility] MEDICINE [address] [place], [place] [phone] Anne Berry DO [address] [place], [place] [phone] Appointment Request Social History Tobacco Use Types [...] pt requesting a PE appointment for school. Cupola Hoist Operator did not see any availability. Please contact [facility] [place] [phone] documented in this encounter Plan of Treatment Upcoming Encounters Date Type Department Care Team (Late st Contact Info) Description 07/16/2025 3:45 PM EST Office Visit [facility] MEDICINE 230 [place] [address] Lidia Mendiola, BILLY [address] [place] [address] 07/30/2025 3:00 PM EST Office Visit [facility] ADULT DENTAL [address] [place] [address] Titi العراقي DDS [address] [place] [address] 12/23/2025 2:15 PM EDT Office Visit [facility] ADULT DENTAL [address] [place] [address] Hilda Ellis [address] [place] [address] documented as of this encounter Visit Diagnoses Not on filedocumented in this encounter Care Teams Firearms Sales Associate Relationship Specialty Start Date End Date Anne Berry DO 230 [place] [address] PCP - General Pediatrics 08/12/18 04/15/23 Lynette Schneider FNP [address] [place] [address] PCP - General Family Medicine 04/16/23 09/09/23 Lidia Mendiola NP [address] [place] [address] PCP - General Family Medicine 09/10/23 documented as of this encounter
--- OUTSIDE RECORDS SUMMARY | 2025-07-11 11:27 | XMS_ITS | Encounter Summary ---
Author Organization [employer] Address [address] [place] [address] 7t [place] [address] Care Team Providers Care Blood Bank Supervisor Name Role Phone Lidia Mendiola NP Primary Care Provider [phone] Reason for Visit * Reason Onset Date Comments Results 01/24/2024 Encounter Details Date Type Department Care Team ([facility] st Contact Info) Description 01/24/2024 Telephone [facility] MEDICINE [address] [place], [place] [phone] Lidia Mendiola NP 230 [place] [address] Results Social History Tobacco Use Types Packs/Day [...] Description 07/16/2025 3:45 PM EST Office Visit [facility] MEDICINE [address] [place] [address] Lidia Mendiola NP [address] [place] [address] 07/30/2025 3:00 PM EST Office Visit [facility] ADULT DENTAL [address] [place] [address] Titi العراقي DDS [address] [place] [address] 12/23/2025 2:15 PM EDT Office Visit [facility] ADULT DENTAL [address] [place] [address] Warner Ellisaris [address] [place] [address] documented as of this encounter Visit Diagnoses Not on filedocumented in this encounter Additional Health Concerns Assessment Noted Time PHQ-9 Depression Total Score: 0 10/07/19 9:10 AM EST documented as of this encounter Care Teams Blood Bank Supervisor Relationship Specialty Start Date End Date Lidia Mendiola NP [address] [place] [address] PCP - General Family Medicine 09/10/23 documented as of this encounter
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
--- OUTSIDE RECORDS SUMMARY | 2025-07-11 11:27 | XMS_ITS | Encounter Summary ---
Author Organization [employer] Address [address] [place] [address] 7[address] [place] [address] Care Team Providers Care Learning And Development Coordinator Name Role Phone Lidia Mendiola NP Primary Care Provider [phone] Reason for Visit * Reason Onset Date Comments Appointment Request 06/25/2025 Encounter Details Date Type Department Care Team ([facility] Contact Info) Description 06/25/2025 Telephone [facility] MEDICINE [address] [place], [place] [phone] Lidia Mendiola NP [address] [place], [place] [phone] Appointment Request Social History Tobacco Use Types [...] advise she see pcp Contact pt at [phone] documented in this encounter Plan of Treatment Upcoming Encounters Date Type Department Care Team ([facility] st Contact Info) Description 07/16/2025 3:45 PM EST Office Visit [facility] MEDICINE [address] [place] [address] Lidia Mendiola NP [address] [place] [address] 07/30/2025 3:00 PM EST Office Visit [facility] ADULT DENTAL [address] [facility] [place] [address] Titi العراقي DDS [address] [place] [address] 12/23/2025 2:15 PM EDT Office Visit [facility] ADULT DENTAL [address] [facility] [place] [address] Hilda Ellis [address] [place] [address] documented as of this encounter Visit Diagnoses Not on filedocumented in this encounter Additional Health Concerns Assessment Noted Time PHQ-9 Depression Total Score: 0 01/22/20 25 2:35 PM EDT documented as of this encounter Care Teams Learning And Development Coordinator Relationship Specialty Start Date End Date Lidia Mendiola NP [address] [place] [address] PCP - General Family Medicine 09/10/23 documented as of this encounter
--- NOTE | 2025-07-11 11:45 | ED_ITS ---
HPI - General Adult General Chief complaint: Abdominal Pain Stated complaint: Headache Time Seen by Provider: 07/11/25 11:44 Source: patient, RN notes reviewed and old records reviewed Mode of arrival: ambulatory Limitations: no limitations History of Present Illness ED Provider: Swap[facility] narrative: Patient is a 19year-old A1 female presenting to the emergency department With complaint of lower abdominal cramping which began today. She states that her last menstrual period was June 12 and had a positive test at home on Saturday. She denies any vaginal bleeding or other abnormal vaginal discharge. She is 9 months and also had an 3 months ago. Denies fevers. Denies any nausea or vomiting. MD complaint: abdominal pain Related Data Allergies Allergy/AdvReac Type Severity Reaction Status Date / Time No Known Allergies Allergy Verified 07/11/25 09:13 Review of Systems 2 Review of Systems: as per hpi Yes all other systems are reviewed and are negative Constitutional: Constitutional: Reports as per HPI [facility] Past Medical History Medical History Asthma Family History Family History Father No problems noted. Mother No problems noted. Social History Social History Household Members: Significant Other and Family Housing: Apartment Do you presently have visiting nurse or other home services: No Patient Tobacco Use Status: Never used Tobacco Smoked in Last 30 Days: No e-Cigarette/Vaping Use: Never Used Second Hand Smoke Exposure: No Use of substances other than those prescribed or required for medical reasons: No Advance Directives: No Advance Directives Information Provided: Yes service: No Physical Exam ED Vital Signs: Vital Signs - 24 hr 07/11/25 09:03 07/11/25 12:32 Temperature 97.8 F 98.3 F Pulse Rate 83 80 Respiratory Rate 16 16 Blood Pressure 117/58 L 113/76 Pulse Oximetry 100 97 Oxygen Delivery Method Room Air Room Air BMI result Body Mass Index 43.1 Vital signs have been reviewed and appear to be correct. Blood pressure normal. Heart rate normal. Respiratory rate normal. Temperature normal. Oxygen saturation normal. Const General: cooperative, healthy appearing and no acute distress Orientation/consciousness: oriented to person, oriented to place, oriented to time and patient oriented x3 Limitations: no limitations HENMT Head: Yes normocephalic and Yes atraumatic Ears: external ears normal General nose exam: Normal external nose present Face and sinus: Yes face symmetric Mouth: oropharynx normal and moist mucous membranes Throat: Yes uvula midline Eyes Pupils: Equal, round and reactive pupils present Neck Neck: Yes normal visual inspection and Yes supple Resp Effort & Inspection: normal respiratory effort and able to speak in complete sentences Auscultation: clear to auscultation bilaterally Cardio Rate: regular rate Rhythm: regular rhythm Heart sounds: S1 normal heart sound present and S2 normal heart sound present GI Palpation (GI): Soft to palpation and nontender Auscultation: normoactive bowel sounds General: Yes no CVA tenderness Back/Spine/Pelvis Back: no CVA tenderness Skin General skin exam: elasticity normal and turgor normal Neuro General: oriented to person, oriented to place, oriented to time, patient oriented x3, moves all extremities, no focal motor deficits and CN's II-XI intact bilaterally Cranial nerves: Yes Equal, round and reactive pupils present Cognition (Neuro): normal cognition Extrem General: Yes full ROM, Yes no pedal edema and Yes no calf tenderness Psych Mental Status: mental status grossly normal Affect: normal affect Thought process: Normal thought process present Medical Decision Making Medical Decision Making MDM Narrative: Patient is a 19year-old A1 female presenting to the emergency department With complaint of lower abdominal cramping which began today. On exam patient is awake, A+Ox3, VS WNL, afebrile, normal neurological exam without focal deficits, physical exam findings as above. Given reported symptoms and physical exam findings, initial differential includes but is not limited to Very early intrauterine , of unknown location, early loss /chemical , false positive HCG, ectopic . Labs notable for hcg of 47, otherwise unremarkable. Pelvic/transvaginal ultrasound notable for no visible IUP or ectopic . My interpretation is in agreement with the radiologist's interpretation. Results discussed with patient and all questions answered. Advised patient she will need repeat HCG testing in 48 hours. Discussed with patient that she can contact her OB from her previous , go to [facility], or return to the ED. Return precautions discussed at bedside. Patient verbalized understanding of and agreement with plan. Differential Diagnosis Differential Diagnoses: The differential diagnosis associated with the presentation includes as per [facility] Admission/Observation Consideration of admission/observation: Escalation of care including admission/observation considered Patient would have been admitted to the hospital and transferred to appropriate facility had their clinical presentation warranted hospital admission. Lab Data [facility] Lab Attestation statement: I reviewed the patient's lab results. as per [facility] 07/11/25 09:35 07/11/25 09:35 Labs: Lab Results 07/11/25 Range/Units 09:35 WBC 8.5 (4.8-10.8) X10*3/uL RBC 4.68 (4.20-5.50) X10*6/uL Hgb 12.7 (12.0-16.0) g/dl Hct 39.5 (37.0-47.0) % MCV 84.4 (80.0-98.0) fL MCH 27.1 (27.0-33.0) pg MCHC 32.2 (31.0-35.0) g/dl RDW 13.6 (11.0-16.0) % Plt Count 343 (160-400) X10*3/uL MPV 10.3 (9.4-12.3) fL Immature Gran % (Auto) 0.4 (0.0-0.4) % Neut % (Auto) 62.4 (45-73) % Lymph % (Auto) 30.3 (20-40) % Brooks % (Auto) 5.1 (2-11) % Eos % (Auto) 1.3 (0-4) % Baso % (Auto) 0.5 (0-2) % Lymph # (Auto) 2.6 (1.2-4.9) X10*3/uL Brooks # (Auto) 0.4 (0.1-1.2) X10*3/uL Eos # (Auto) 0.1 (0.0-0.4) X10*3/uL Baso # (Auto) 0.0 (0.0-0.2) X10*3/uL Abs Immat Gran (auto) 0.03 (0.00-0.03) X10*3/uL Absolute Neuts (auto) 5.3 (2.0-8.3) x10*3/uL Absolute Nucleated RBC 0.000 (0.0-0.012) X10*3/uL Nucleated RBC % (auto) 0.0 (0.0-0.2) /100WBC Sodium 140 (135-145) mmol/L Potassium 4.2 (3.3-5.1) mmol/L Chloride 109 H (96-108) mmol/L Carbon Dioxide 23 (22-29) mmol/L Anion Gap 12 (12-20) BUN 20 H (9-16) mg/dL Creatinine 0.74 (0.5-1.4) mg/dL Estim Creat Clear Calc 150.0 Estimated GFR > 60 Random Glucose 108 (60-115) mg/dL Calcium 9.6 D (8.4-10.2) mg/dL Magnesium 1.8 (1.6-2.6) mg/dL Total Bilirubin 0.6 (0.0-1.0) mg/dL AST 15 (5-31) U/L ALT 15 (0-31) U/L Alkaline Phosphatase 81 (39-117) U/L Total Protein 7.0 (6.5-8.0) g/dL Albumin 4.5 (3.5-5.0) g/dL Lipase 15 (8-78) U/L Beta HCG, Quant 47 mIU/mL Influenza Type A (PCR) NEGATIVE (Negative) Influenza Type B (PCR) NEGATIVE (Negative) RSV RNA Qual (PCR) NEGATIVE (Negative) SARS-CoV-2 RNA (RT-PCR) NEGATIVE (Negative) Blood Type A Positive Independent Interpretation I performed an independent interpretation of an: Ultrasound Interpretation: pelvic and transvaginal ultrasound notable for no visualized intrauterine or ectopic Radiology Impression Discussion of test interpretation with radiology: I have reviewed the radiologist's reading. Radiologist Impression: Findings: No identified intrauterine or extra uterine gestation. Anteverted uterus measuring 7.8 x 4.1 x 4.9cm without masses. Punctate echogenic lesion at the junction of the endometrium and myometrium could be a small calcification, although shadowing is not identified. The endometrium measures 1.3 cm in thickness. Trace fluid in the endometrial canal. The right ovary is normal in size, measuring 3.0 x 1.7 x 1.7cm, volume of 4.5mL. There is normal echogenicity and vascularity. No lesions. The left ovary is normal in size, measuring 2.5 x 1.8 x 2.0cm, volume of 4.7mL. There is normal echogenicity and vascularity. No lesions. There is a trace amount of fluid in the cul-de-sac, which is likely physiologic. Impression: No identified intrauterine or extra uterine gestation, as expected with a beta HCG level of 47. The differential diagnosis includes a normal early , miscarriage and nonvisualized ectopic . Serial beta HCG levels are recommended. External Record Review External record reviewed: Inpatient record, Office record and Outpatient record Discharge Plan Discharge Clinical Impression: Abdominal pain, Elevated serum hCG Patient Disposition: Home, Self-Care Additional Instructions: You were evaluated in the emergency department today for lower abdominal pain. Your HCG level was 47. This likely represents very early . It is too early to visualize an ectopic versus uterine on ultrasound. You will need to have your HCG level rechecked in 48 hours. It is also very important that you have OB follow up as soon as possible. Please return for worsening symptoms such as pain, dizziness, fainting, bleeding that is much heavier than a period and you are having large clots bigger than a golf ball. Please see list of OGBYN providers below if you do not have one. OBGYN and Midwifery [facility] [address] [phone] [facility] [address] [facility] [phone] [facility] [address] [phone] [facility] [place] [phone] [facility] [phone] Print Language: Ivorian
[2025-07-11 12:32] VITALS: BP 113/76; PULSE 80; RESP 16; TEMP 36.8; O2SAT 97
[2025-07-11 16:30] VITALS: BP 100/60; PULSE 79; RESP 18; TEMP 36.3; O2SAT 97
[2025-07-11 16:38] VITALS: BP 100/60; PULSE 79; RESP 18; TEMP 36.3; O2SAT 97
== END 2025-07-11 16:39 | disposition home or self-care (01) ==
PROVIDERS: Physician Assistant; Emergency Provider Emergency Medicine Emergency Medical Services; PCP Nurse Practitioner Family
DX: R10.9 Unspecified abdominal pain (principal); R89.1 Abnormal level of hormones in specimens from other organs, systems and tissues
CPT/HCPCS: 76830; 76856; 80053; 83690; 83735; 84702; 85025; 86900; 86901; 87637; 99284

== ENCOUNTER → 2025-07-11 11:46 | Outpatient (BNV) | payer MEDICAID, SELFPAY | PROVIDERS: Emergency Provider Emergency Medicine Emergency Medical Services; PCP Nurse Practitioner Family; Visit Provider Radiology Diagnostic Radiology | DX: R10.30 Lower abdominal pain, unspecified (principal); R79.89 Other specified abnormal findings of blood chemistry | CPT/HCPCS: 76830; 76856 ==